=== PATIENT | male | born 1945 | race Caucasian/White ===

== ENCOUNTER 2016-06-30 02:25 | Inpatient (IN) ==
[2016-06-30] MEDS ORDERED: Ipratropium/Albuterol Neb 3 ML IH ONE (02:37)
[2016-06-30 02:55] LABS: Basophils # 0.1 K/mcL (0.0-0.2); Basophils % 0.9 %; Eosinophils # 0.2 K/mcL (0.0-0.6); Eosinophils % 2.2 %; Hematocrit 48.9 % (37.5-50.1); Hemoglobin 14.7 g/dL (12.9-16.9); Immature Granulocytes % 0.6 % (0-4); Lymphocytes # 0.4 K/mcL (0.6-4.6); Lymphocytes % 5.3 %; Mean Corpuscular HGB Conc 30.1 g/dL (31.6-35.5); Mean Corpuscular Hemoglobin 30.8 pg (28.0-33.3); Mean Corpuscular Volume 102.3 fL (83.0-100.0); Mean Platelet Volume 10.2 fL (9.4-12.4); Monocytes # 0.5 K/mcL (0.0-1.3); Monocytes % 6.2 %; Neutrophils # 6.9 K/mcL (1.6-8.9); Platelet Count 187 K/mcL (140-400); Red Blood Count 4.78 M/mcL (4.19-5.50); Red Cell Distribution Width 12.8 % (11.5-14.5); Segmented Neutrophils % 84.8 %
[2016-06-30 03:00] LABS: ABG HCO3 46.3 mEQ/L (21-27); ABG Oxygen Saturation 85 % (95-98); ABG PH 7.24 pH Units (7.32-7.45); ABG PO2 58 mmHg (85-104); ABG TCO2 49.6 mEq/L (20-26)
[2016-06-30 03:01] LABS: Blood Gas FiO2 32 %
[2016-06-30 03:03] LABS: ABG PCO2 108 mmHg (35-45)
--- NOTE | 2016-06-30 03:06 | Emergency Department Note ---
Disposition Clinical Impression: Hypercapnia Altered mental status Qualifiers: Altered mental status type: disorientation Qualified Code(s): R41.0 - Disorientation, unspecified Disposition: Admitted As Inpatient Condition: Good Time of Disposition: 05:39 General Adult HPI - General Chief complaint: ED Shortness of Breath/Dyspnea Stated complaint: NGOC Time Seen by Provider: 06/30/16 02:37 Source: patient, family, EMS Limitations: altered mental status Nursing Notes Reviewed: Yes Vital Signs Reviewed: Yes - History of Present Illness HPI Narrative: 2 day history of altered mental status. Patient brought in by EMS. Caregiver at bedside reporting he does have a history of hypercapnia. They state that he generally wears 2 L of oxygen when he is sleeping on his BiPAP. He was seen approximately week ago and cardiac kidney stones or possibly bladder stones. Caregiver is unaware. Pain Scale: 0 - Related Data Home Medications Medication Instructions Recorded Confirmed Albuterol Sulfate [Albuterol 2 puff IH Q4HR PRN 01/04/15 06/30/16 Inhaler] Aspirin Enteric Coated [Aspirin EC] 81 mg PO QAM 01/04/15 06/30/16 Atorvastatin [Lipitor] 40 mg PO HS 01/04/15 06/30/16 Loratadine [Claritin] 10 mg PO QAM 01/04/15 06/30/16 Multivitamin [Multi-Day Vitamins] 1 tab PO QAM 01/04/15 06/30/16 Om3-Dha/Epa/D3/Lutein/Zeazanth 1 cap PO BID 01/04/15 06/30/16 [Eye [place] Advantage Softgel] Omeprazole [PriLOSEC] 20 mg PO QAM 01/04/15 06/30/16 Tiotropium [Spiriva] 2 puff IH DAILY 01/04/15 06/30/16 Topiramate [Topamax] 100 mg PO BID 01/04/15 06/30/16 Acetaminophen [Tylenol] 650 mg PO Q6HR PRN 06/21/15 06/30/16 Carvedilol [Coreg] 3.125 - 6.25 mg PO BID 08/12/15 06/30/16 Clopidogrel [Plavix] 75 mg PO QAM 08/12/15 06/30/16 Isosorbide MONOnitrate (24 HR) 30 mg PO QAM 08/12/15 06/30/16 [Imdur] Ropinirole [Requip] 0.25 mg PO HS 08/12/15 06/30/16 Dimethyl Fumarate [Tecfidera] 240 mg PO BID 09/30/15 06/30/16 Lactobacillus [Culturelle] 1 each PO DAILY 09/30/15 06/30/16 Salsalate [Disalcid] 750 mg PO TID PRN 09/30/15 06/30/16 Tamsulosin [Flomax] 0.4 mg PO DAILY 09/30/15 06/30/16 Albuterol Neb [Proventil Neb] 2.5 mg IH Q4HR PRN 01/02/16 06/30/16 Budesonide/Formoterol 160/4.5 2 puff IH BIDR 01/02/16 06/30/16 [Symbicort 160/4.5] Capsaicin [Arthritis Pain Relief] 1 appl TP TID PRN 01/02/16 06/30/16 Docusate [Colace] 100 mg PO BID 01/02/16 06/30/16 Gabapentin [Neurontin] 300 mg PO TID 01/02/16 06/30/16 Guaifenesin [Tab Tussin] 400 mg PO TID PRN 01/02/16 06/30/16 Lactose-Reduced Food [Ensure Plus] 1 bottle PO TID 01/02/16 06/30/16 Levothyroxine [Synthroid] 50 mcg PO QAM 01/02/16 06/30/16 Nitroglycerin [Nitrostat] 0.4 mg SL AD PRN 01/02/16 06/30/16 Acetaminophen w/Cod 300-30 mg 1 tab PO Q6HR PRN 06/30/16 06/30/16 [Tylenol w/Codeine #3] Lisinopril 2.5 mg PO AD PRN 06/30/16 06/30/16 Previous Rx's Medication Instructions Recorded Ondansetron ODT [Zofran ODT] 4 mg SL Q6HR PRN #12 tab.rapdis 06/22/16 Allergies Allergy/AdvReac Type Severity Reaction Status Date / Time Aluminum Allergy Hives Verified 01/01/16 16:35 moxifloxacin Allergy Swelling Verified 01/01/16 16:35 of Lip/Tongue/Throat Nickel Allergy Rash Verified 01/01/16 16:35 [place] And Derivatives AdvReac See Verified 01/01/16 16:35 Comments magnesium AdvReac See Verified 01/01/16 16:35 Comments metal Allergy Rash Uncoded 01/04/15 09:53 Limitations: ROS unobtainable due to patients medical condition Past Medical History - Past Medical History Medical history: Reports: arthritis, CHF, COPD, coronary artery disease, GERD, hyperlipidemia, hypertension, myocardial infarction, thyroid disease, syncope, other Surgical history: Reports: appendectomy, pacemaker/AICD, other ([facility]. He had stents placed in June per patient. ) Psychiatric history: Reports: no psych history - Social History Smoking Status: Current every day smoker Smokeless Tobacco Status: No Alcohol use: Reports: none Drug use: Reports: none Physical Exam - General Limitations: altered mental status General appearance: alert - Head Head exam: atraumatic, normocephalic, normal inspection - Eye Eye exam: Present: normal appearance, PERRL, EOMI. Absent: scleral icterus, conjunctival injection - ENT ENT exam: normal exam, normal oropharynx, mucous membranes moist - Neck Neck exam: Present: normal inspection, full ROM, trachea midline - Chest Chest inspection: Present: normal inspection, symmetric chest wall rise. Absent : tenderness - Respiratory Respiratory exam: Present: respiratory distress (Patient paradoxically breathing ), wheezes - Cardiovascular Cardiovascular exam: Present: normal rhythm, tachycardia, normal heart sounds - Abdominal Exam Abdominal exam: Present: soft, Non-Tender, normal bowel sounds. Absent: tenderness, distention, guarding, rebound, rigidity, organomegaly - Extremities Exam Extremities exam: Present: normal inspection, full ROM, normal capillary refill. Absent: tenderness, pedal edema, joint swelling - Neurological Exam Neurological exam: Present: alert, other (Confused.). Absent: oriented X3 - Psychiatric Psychiatric exam: Present: normal affect, normal mood - Skin Skin exam: Present: warm, dry, intact, normal color. Absent: rash, cyanosis Course Course Narrative: Male patient brought in by EMS. Caregiver at bedside advising that he has been confused for the past 2 days. He does have a history of hypercapnic issues. He advises that the patient wears 2 L of oxygen at home and a BiPAP whenever he is asleep. He states he has been compliant with his regimen. The patient is very confused. He is unaware of where he is what month it is or what year it is. He is alert to voice. Lung sounds are wheezing throughout. He is paradoxically breathing and in the 92% range on 2 L. Will give patient a breathing treatment and get an ABG. Will also get basic labs. And a chest x- ray. I anticipate admission for this patient. - Reevaluation(s) Reevaluation #1: Patient CO2 is 108. We will place patient on BiPAP. We will admit patient Time: 03:17 Reevaluation #2: Patient CO2 did not decrease and a significant fashion. We will intubate patient. He was intubated with a 7.5 ET tube secured at the hip at 24 cm. Intubation was successful on one attempt. He was left on BiPAP and induced. There were no complications noted. Time: 05:37 Vital Signs Temperature 97.7 F 06/30/16 02:28 Pulse Rate 108 06/30/16 02:28 Respiratory Rate 20 06/30/16 02:28 Blood Pressure 165/92 06/30/16 02:28 O2 Sat by Pulse Oximetry 90 L 06/30/16 02:28 Temperature 98.0 F 06/30/16 20:00 Pulse Rate 72 06/30/16 23:00 Respiratory Rate 22 06/30/16 23:00 Blood Pressure 132/70 06/30/16 23:00 O2 Sat by Pulse Oximetry 97 06/30/16 23:00 Oxygen Delivery Oxygen Delivery Ventilator Procedures - Intubation Time out performed: Yes sedative: Etomidate Mg Given: 21 paralytic: Rocuronium Mg Given: 42 Laryngoscope: Lopez ET Tube Size: 7.5 ET Tube Uncuffed: No Tube Secured Depth (cm): 24 Tube Secured Location: lips Tube Placement Confirmation: visualized tube passing through cords, equal breath sounds bilaterally, no breath sounds over epigastrium, confirmation by capnometry Patient Tolerated Procedure: well Intubation Complications: none Medical Decision Making - Medical Records Medical records reviewed: Yes I reviewed the patient's medical records. - Lab Data Lab results reviewed: Yes I reviewed the patient's lab results. Result diagrams: 06/30/16 02:49 06/30/16 02:49 Lab Results 06/30/16 06/30/16 06/30/16 Range/Units 02:39 02:49 02:49 WBC 8.2 (4.3-11.1) K/mcL RBC 4.78 (4.19-5.50) M/mcL Hgb 14.7 (12.9-16.9) g/dL Hct 48.9 (37.5-50.1) % MCV 102.3 H (83.0-100.0) fL MCH 30.8 (28.0-33.3) pg MCHC 30.1 L (31.6-35.5) g/dL RDW 12.8 (11.5-14.5) % Plt Count 187 (140-400) K/mcL MPV 10.2 (9.4-12.4) fL Immature Gran % 0.6 (0-4) % Seg Neutrophils % 84.8 % Lymphocytes % 5.3 % Monocytes % 6.2 % Eosinophils % 2.2 % Basophils % 0.9 % Neutrophils # 6.9 (1.6-8.9) K/mcL Lymphocytes # 0.4 L (0.6-4.6) K/mcL Monocytes # 0.5 (0.0-1.3) K/mcL Eosinophils # 0.2 (0.0-0.6) K/mcL Basophils # 0.1 (0.0-0.2) K/mcL ABG pH (7.32-7.45) pH Units ABG pCO2 (35-45) mmHg ABG pO2 (85-104) mmHg ABG HCO3 (21-27) mEQ/L ABG Total CO2 (20-26) mEq/L ABG O2 Saturation (95-98) % ABG Base Excess (-2.0 to 3.0) mEq/L Blood Gas Modality Inspired O2 % Sodium 141 (136-145) mEq/L Potassium 4.7 H (3.5-4.5) mEq/L Chloride 99 (98-109) mEq/L Carbon Dioxide 36 H (19-29) mEq/L BUN 23 (8-26) mg/dL Creatinine 1.01 (0.72-1.25) mg/dL Est GFR ( Amer) > 60 (> 60) Est GFR (Non-Af Amer) > 60 (> 60) BUN/Creatinine Ratio 23 (6-26) Glucose 161 H (70-99) mg/dL POC Glucose 134 H (58-89) Calculated Osmolality 299 (280-300) Lactic Acid (0.5-2.2) mmol/L Calcium 9.8 (8.6-10.8) mg/dL Troponin I (0-0.03) ng/mL 06/30/16 06/30/16 06/30/16 Range/Units 02:49 02:49 02:50 WBC (4.3-11.1) K/mcL RBC (4.19-5.50) M/mcL Hgb (12.9-16.9) g/dL Hct (37.5-50.1) % MCV (83.0-100.0) fL MCH (28.0-33.3) pg MCHC (31.6-35.5) g/dL RDW (11.5-14.5) % Plt Count (140-400) K/mcL MPV (9.4-12.4) fL Immature Gran % (0-4) % Seg Neutrophils % % Lymphocytes % % Monocytes % % Eosinophils % % Basophils % % Neutrophils # (1.6-8.9) K/mcL Lymphocytes # (0.6-4.6) K/mcL Monocytes # (0.0-1.3) K/mcL Eosinophils # (0.0-0.6) K/mcL Basophils # (0.0-0.2) K/mcL ABG pH 7.24 L (7.32-7.45) pH Units ABG pCO2 108 H* (35-45) mmHg ABG pO2 58 L (85-104) mmHg ABG HCO3 46.3 H (21-27) mEQ/L ABG Total CO2 49.6 H (20-26) mEq/L ABG O2 Saturation 85 L (95-98) % ABG Base Excess 13.0 H (-2.0 to 3.0) mEq/L Blood Gas Modality [place] Inspired O2 32 % Sodium (136-145) mEq/L Potassium (3.5-4.5) mEq/L Chloride (98-109) mEq/L Carbon Dioxide (19-29) mEq/L BUN (8-26) mg/dL Creatinine (0.72-1.25) mg/dL Est GFR ( Amer) (> 60) Est GFR (Non-Af Amer) (> 60) BUN/Creatinine Ratio (6-26) Glucose (70-99) mg/dL POC Glucose (58-89) Calculated Osmolality (280-300) Lactic Acid 0.5 (0.5-2.2) mmol/L Calcium (8.6-10.8) mg/dL Troponin I 0.01 (0-0.03) ng/mL 06/30/16 Range/Units 04:50 WBC (4.3-11.1) K/mcL RBC (4.19-5.50) M/mcL Hgb (12.9-16.9) g/dL Hct (37.5-50.1) % MCV (83.0-100.0) fL MCH (28.0-33.3) pg MCHC (31.6-35.5) g/dL RDW (11.5-14.5) % Plt Count (140-400) K/mcL MPV (9.4-12.4) fL Immature Gran % (0-4) % Seg Neutrophils % % Lymphocytes % % Monocytes % % Eosinophils % % Basophils % % Neutrophils # (1.6-8.9) K/mcL Lymphocytes # (0.6-4.6) K/mcL Monocytes # (0.0-1.3) K/mcL Eosinophils # (0.0-0.6) K/mcL Basophils # (0.0-0.2) K/mcL ABG pH 7.24 L (7.32-7.45) pH Units ABG pCO2 106 H* (35-45) mmHg ABG pO2 100 (85-104) mmHg ABG HCO3 45.4 H (21-27) mEQ/L ABG Total CO2 48.7 H (20-26) mEq/L ABG O2 Saturation 97 (95-98) % ABG Base Excess 12.6 H (-2.0 to 3.0) mEq/L Blood Gas Modality BIPAP Inspired O2 40 % Sodium (136-145) mEq/L Potassium (3.5-4.5) mEq/L Chloride (98-109) mEq/L Carbon Dioxide (19-29) mEq/L BUN (8-26) mg/dL Creatinine (0.72-1.25) mg/dL Est GFR ( Amer) (> 60) Est GFR (Non-Af Amer) (> 60) BUN/Creatinine Ratio (6-26) Glucose (70-99) mg/dL POC Glucose (58-89) Calculated Osmolality (280-300) Lactic Acid (0.5-2.2) mmol/L Calcium (8.6-10.8) mg/dL Troponin I (0-0.03) ng/mL - Radiology Data Chest X-Ray 06/30/16 02:37 IMPRESSION: Stable appearance of the chest with no acute abnormality. D/ / Refugio Hernandez MD / Refugio Hernandez MD Interpreting Provider: Refugio Hernandez MD - EKG Data EKG #1 EKG attestation: Yes I reviewed and interpreted this EKG. EKG results narrative: Ventricularly paced rhythm at a rate of 109. DC interval is 187. QRS duration is 167. QT is 361. QTC is 425. Is no change in the EKG and the previous dated 01/01/2016. Attestation Statement - Attestation Attestation: I examined this patient and my medical decision-making was reviewed with the INTERNAL COMMUNICATIONS WRITER/PA/Advanced Practice Nurse/Resident Physician. I agree with the documented findings, disposition and treatment plan as described except to the extent set forth below. Patient emergency department with altered mental status. Family states that he is confused. States he did however graduating normally is very sharp in conversation. Does not even know a day of the week it is. History of respiratory failure with hypercapnia. On exam he is awake alert in no distress. He has decreased air exchange with end expiratory wheezing. Plan. ABG shows a CO2 over 100. He started on BiPAP. X-ray clear. Patient will be admitted after repeat ABG. Patient fell hypercapnia on repeat EEG. Intubated. Verbal consent from caregiver present with patient. We will admit to ICU. 35 minutes of critical care exclusive of separately billable procedures
[2016-06-30 03:10] LABS: BUN/Creatinine Ratio 23 (6-26); Blood Urea Nitrogen 23 mg/dL (8-26); Calcium 9.8 mg/dL (8.6-10.8); Carbon Dioxide 36 mEq/L (19-29); Chloride 99 mEq/L (98-109); Glucose 161 mg/dL (70-99); Osmolality,Calculated 299 (280-300); Potassium 4.7 mEq/L (3.5-4.5); Sodium 141 mEq/L (136-145); eGFR For African Americans > 60 (> 60); eGFR For Non-African Americans > 60 (> 60)
[2016-06-30 05:05] LABS: ABG Base Excess 12.6 mEq/L (-2.0 to 3.0); ABG HCO3 45.4 mEQ/L (21-27); ABG Oxygen Saturation 97 % (95-98); ABG PH 7.24 pH Units (7.32-7.45); ABG PO2 100 mmHg (85-104); ABG TCO2 48.7 mEq/L (20-26)
[2016-06-30 05:06] LABS: Blood Gas FiO2 40 %
[2016-06-30 05:09] LABS: ABG PCO2 106 mmHg (35-45)
[2016-06-30] MEDS ORDERED: Propofol 500 MG/50 ML INFUS..BTL ONE (05:15)
[2016-06-30] MEDS ORDERED: *HR* Rocuronium Bromide 50 MG/5 ML VIAL IVP ONE (05:16)
[2016-06-30] MEDS ORDERED: *HR* Etomidate 20 MG/10 ML AMPUL IVP ONE (05:17)
[2016-06-30] MEDS ORDERED: Naloxone 0.4 MG/ML INJ IVP PRN ×2 (06:02→16:42)
[2016-06-30] MEDS ORDERED: Lacri-Lube 3.5 GM TUBE BOTH EYES PRN (06:25)
--- NOTE | 2016-06-30 06:25 | Internal Med History&Physical ---
Date of Encounter: 06/30/16 Time of Encounter: 06:25 Assessment and Plan (1) Acute and chronic respiratory failure Current visit: Yes Status: Acute Possibly secondary to acute exacerbation of COPD. Pt was on BiPAP at home. He has significant CO2 retention. Failed a trial of BiPAP in the ER and hence intubated. Pulmonary / critical care consult for further management. Qualifiers: Respiratory failure complication: hypoxia and hypercapnia Qualified Code(s) : J96.21 - Acute and chronic respiratory failure with hypoxia; J96.22 - Acute and chronic respiratory failure with hypercapnia (2) Respiratory acidosis Current visit: Yes Status: Acute Secondary to CO2 retention. Pt failed BiPAP therapy - now intubated and on mechanical vent. Monitor ABGs (3) COPD exacerbation Current visit: Yes Status: Acute Will treat with bronchodilators and solumedrol. Pulmonary consult (4) CAD (coronary artery disease) Current visit: Yes Status: Chronic Continue home medications Qualifiers: Coronary Disease-Associated Artery/Lesion type: [place] artery [place] vs. transplanted heart: [place] heart Associated angina: without angina Qualified Code(s): I25.10 - Atherosclerotic heart disease of [place] coronary artery without angina pectoris (5) Hypothyroidism Current visit: Yes Status: Chronic continue synthroid. Check TSH Qualifiers: Hypothyroidism type: unspecified Qualified Code(s): E03.9 - Hypothyroidism , unspecified (6) CO2 narcosis Current visit: Yes Status: Acute Failed BiPAP therapy - intubated (7) DVT prophylaxis Current visit: Yes Status: Acute Heparin Internal Medicine - H&P: HPI Chief complaint: Confusion Admitted From: Emergency Dept Plans for Post Hospital Care: Home History of present illness: Mr. Grayson is a 71 year old male With Past medical history significant for CHF , COPD, Chronic respiratory failure on home oxygen and home BiPAP, coronary artery disease, GERD, hyperlipidemia, hypertension, myocardial infarction, hypothyroidism, s/p pacemaker/AICD. For the last 2 days apparently has been confused and more sleepy which has gotten worse tonight. Confusion was worse and he was noted to be hypoxic on the pulse oximetry, when he was off BiPAP. His son was concerned about CO2 retention and brought him to the emergency department. He was hypercapnic with PCO2 of 108 (his baseline is apparently at about 70) and pH of 7.24. He had a trail for BiPAP, with minimal improvmentin pCO2. Hence he was intubated and started on mechanical ventilation. He is admitted to ICU for further management. Patient is intubated and sedated and is not able to give any clinical details. Details obtained by speaking to the pts son and ER providers. Critical care time spent in a organizing care is about 40 minutes. Past Med Surg Social Fam HX - Past Medical History Medical history: arthritis, CHF, COPD, coronary artery disease, GERD, hyperlipidemia, hypertension, myocardial infarction, thyroid disease, syncope, other Psychiatric history: no psych history - Past Surgical History Surgical History: appendectomy, pacemaker/AICD, other ([facility]. He had stents placed in June per patient. ) - Social History Smoking Status: Current every day smoker Smokeless Tobacco Status: No Alcohol use: none Drug use: none - Family History Mother Adopted: No Family Member Ethnicity: Non- Living Status: Hx Family Cancer: Yes (uncertain) Father Adopted: No Family Member Ethnicity: Non- Living Status: Hx Family Cardiac Disorders: Yes Hx Family Respiratory Disorders: Yes Hx Family Cancer: Yes (colon) Hx Family GI Disorders: No Hx Family Endocrine Disorder: Yes (diabetic type 2) Hx Family Neuromuscular Disorders: No Hx Family Neurologic Disorders: No Hx Family HEENT Disorders: No Hx Family Autoimmune Disorders: No Internal Medicine - H&P: Meds Albuterol Sulfate [Albuterol Inhaler] 2 puff IH Q4HR PRN 01/04/15 [History] Aspirin Enteric Coated [Aspirin EC] 81 mg PO QAM 01/04/15 [History] Atorvastatin [Lipitor] 40 mg PO HS 01/04/15 [History] Loratadine [Claritin] 10 mg PO QAM 01/04/15 [History] Multivitamin [Multi-Day Vitamins] 1 tab PO QAM 01/04/15 [History] Om3-Dha/Epa/D3/Lutein/Zeazanth [Eye [place] Advantage Softgel] 1 cap PO BID [History] Omeprazole [PriLOSEC] 20 mg PO QAM 01/04/15 [History] Tiotropium [Spiriva] 2 puff IH DAILY 01/04/15 [History] Topiramate [Topamax] 100 mg PO BID 01/04/15 [History] Acetaminophen [Tylenol] 650 mg PO Q6HR PRN 06/21/15 [History] Carvedilol [Coreg] 3.125 - 6.25 mg PO BID 08/12/15 [History] Clopidogrel [Plavix] 75 mg PO QAM 08/12/15 [History] Isosorbide MONOnitrate (24 HR) [Imdur] 30 mg PO QAM 08/12/15 [History] Ropinirole [Requip] 0.25 mg PO HS 08/12/15 [History] Dimethyl Fumarate [Tecfidera] 240 mg PO BID 09/30/15 [History] Lactobacillus [Culturelle] 1 each PO DAILY 09/30/15 [History] Salsalate [Disalcid] 750 mg PO TID PRN 09/30/15 [History] Tamsulosin [Flomax] 0.4 mg PO DAILY 09/30/15 [History] Albuterol Neb [Proventil Neb] 2.5 mg IH Q4HR PRN 01/02/16 [History] Budesonide/Formoterol 160/4.5 [Symbicort 160/4.5] 2 puff IH BIDR 01/02/16 [ History] Capsaicin [Arthritis Pain Relief] 1 appl TP TID PRN 01/02/16 [History] Docusate [Colace] 100 mg PO BID 01/02/16 [History] Gabapentin [Neurontin] 300 mg PO TID 01/02/16 [History] Guaifenesin [Tab Tussin] 400 mg PO TID PRN 01/02/16 [History] Lactose-Reduced Food [Ensure Plus] 1 bottle PO TID 01/02/16 [History] Levothyroxine [Synthroid] 50 mcg PO QAM 01/02/16 [History] Nitroglycerin [Nitrostat] 0.4 mg SL AD PRN 01/02/16 [History] Ondansetron ODT [Zofran ODT] 4 mg SL Q6HR PRN #12 tab.rapdis 06/22/16 [Rx] Acetaminophen w/Cod 300-30 mg [Tylenol w/Codeine #3] 1 tab PO Q6HR PRN 06/30/16 [History] Lisinopril 2.5 mg PO AD PRN 06/30/16 [History] Allergies Aluminum Allergy (Verified 01/01/16 16:35) Hives moxifloxacin Allergy (Verified 01/01/16 16:35) Swelling of Lip/Tongue/Throat Nickel Allergy (Verified 01/01/16 16:35) Rash [place] And Derivatives Adverse Reaction (Verified 01/01/16 16:35) See Comments MOUTH SORES magnesium Adverse Reaction (Verified 01/01/16 16:35) See Comments BURNING WITH URINATION metal Allergy (Uncoded 01/04/15 09:53) Rash ROS unobtainable: due to endotracheal tube - Constitutional Vitals: Temp Pulse Resp BP Pulse Ox 97.7 F 81 16 98/67 99 06/30/16 02:28 06/30/16 05:56 06/30/16 05:56 06/30/16 05:56 06/30/16 05:56 Exam: General: Patient is sedated and intubated. HEENT: Patient is sedated and intubated. Endotracheal tube in place. No conjunctival palor or scleral icterus Neck: No obvious neck swellings Lungs: Bilateral wheeze present. Transmitted sounds present Cardiac: Regular rate and rhythm. No significant murmurs Abdomen: Soft. Bowel sounds present Neurological: Patient is sedated and intubated. Not able to follow commands Psych: Patient is sedated and intubated Extremities: no significant leg edema Skin: No generalized rash Internal Med - H&P Results - Labs CBC & Chem 7: 06/30/16 02:49 06/30/16 02:49 - EKG Data -: EKG Interpreted by Myself EKG shows normal: sinus rhythm - Impressions ITS Impressions Chest X-Ray 06/30/16 02:37 IMPRESSION: Stable appearance of the chest with no acute abnormality. D/ / Refugio Hernandez MD / Refugio Hernandez MD Interpreting Provider: Refugio Hernandez MD Chest X-Ray 06/30/16 05:33 IMPRESSION: Appropriate positioning of endotracheal tube. No other significant findings in the chest. D/ / Refugio Hernandez MD / Refugio Hernandez MD Interpreting Provider: Refugio Hernandez MD
[2016-06-30] MEDS ORDERED: Pantoprazole 40 MG VIAL IVPB SCH (06:30)
[2016-06-30 06:51] LABS: Bilirubin,Urine Negative (Negative); Blood,Urine Large (Negative); Clarity,Urine Clear (Clear); Color,Urine Yellow (Yellow); Glucose,Urine (UA) Normal (Normal); Ketones,Urine Negative (Negative); Leukocyte Esterase,Urine Negative (Negative); Nitrite,Urine Negative (Negative); PH,Urine 6.5 pH Units (5.0-8.0); Protein,Urine 30 mg/dL (Neg-Trace); Specific Gravity,Urine 1.019 (1.010-1.025); Urobilinogen,Urine Normal (Normal)
[2016-06-30 06:53] LABS: Bacteria,Urine None Seen per hpf (None-Few); Hyaline Casts,Urine None Seen per lpf (None-Few); RBC,Urine TNTC per hpf (0-3); Squamous Epithelial Cell,Urine Moderate per lpf (None-Few); WBC,Urine 0-3 per hpf (0-3)
--- NOTE | 2016-06-30 06:59 | Pulmonology Consult Note ---
<Juaquin Álvarez W - Last Filed: 06/30/16 10:58> Medications and Allergies Albuterol Sulfate [Albuterol Inhaler] 2 puff IH Q4HR PRN 01/04/15 [History] Aspirin Enteric Coated [Aspirin EC] 81 mg PO QAM 01/04/15 [History] Atorvastatin [Lipitor] 40 mg PO HS 01/04/15 [History] Loratadine [Claritin] 10 mg PO QAM 01/04/15 [History] Multivitamin [Multi-Day Vitamins] 1 tab PO QAM 01/04/15 [History] Om3-Dha/Epa/D3/Lutein/Zeazanth [Eye [place] Advantage Softgel] 1 cap PO BID [History] Omeprazole [PriLOSEC] 20 mg PO QAM 01/04/15 [History] Tiotropium [Spiriva] 2 puff IH DAILY 01/04/15 [History] Topiramate [Topamax] 100 mg PO BID 01/04/15 [History] Acetaminophen [Tylenol] 650 mg PO Q6HR PRN 06/21/15 [History] Carvedilol [Coreg] 3.125 mg PO BID 08/12/15 [History] Clopidogrel [Plavix] 75 mg PO QAM 08/12/15 [History] Isosorbide MONOnitrate (24 HR) [Imdur] 15 mg PO QAM 08/12/15 [History] Ropinirole [Requip] 0.25 mg PO HS 08/12/15 [History] Dimethyl Fumarate [Tecfidera] 240 mg PO BID 09/30/15 [History] Lactobacillus [Culturelle] 1 each PO DAILY 09/30/15 [History] Salsalate [Disalcid] 750 mg PO TID PRN 09/30/15 [History] Tamsulosin [Flomax] 0.4 mg PO DAILY 09/30/15 [History] Albuterol Neb [Proventil Neb] 2.5 mg IH Q4HR PRN 01/02/16 [History] Budesonide/Formoterol 160/4.5 [Symbicort 160/4.5] 2 puff IH BIDR 01/02/16 [ History] Capsaicin [Arthritis Pain Relief] 1 appl TP TID PRN 01/02/16 [History] Docusate [Colace] 100 mg PO BID 01/02/16 [History] Gabapentin [Neurontin] 300 mg PO TID 01/02/16 [History] Guaifenesin [Tab Tussin] 400 mg PO TID PRN 01/02/16 [History] Lactose-Reduced Food [Ensure Plus] 1 bottle PO TID 01/02/16 [History] Levothyroxine [Synthroid] 50 mcg PO QAM 01/02/16 [History] Nitroglycerin [Nitrostat] 0.4 mg SL AD PRN 01/02/16 [History] Sennosides/Docusate Sodium [Senna Plus] 2 each PO BID PRN 01/02/16 [History] Acetaminophen w/Cod 300-30 mg [Tylenol w/Codeine #3] 1 each PO Q6HR PRN #15 tablet 06/22/16 [Rx] Ondansetron ODT [Zofran ODT] 4 mg SL Q6HR PRN #12 tab.rapdis 06/22/16 [Rx] Peg 3350/Na Sulf,Bicarb,Cl/KCl [Golytely Solution] 4,000 ml PO ONCE PRN #1 soln.recon 06/22/16 [Rx] Allergies Aluminum Allergy (Verified 01/01/16 16:35) Hives moxifloxacin Allergy (Verified 01/01/16 16:35) Swelling of Lip/Tongue/Throat Nickel Allergy (Verified 01/01/16 16:35) Rash [place] And Derivatives Adverse Reaction (Verified 01/01/16 16:35) See Comments MOUTH SORES magnesium Adverse Reaction (Verified 01/01/16 16:35) See Comments BURNING WITH URINATION metal Allergy (Uncoded 01/04/15 09:53) Rash All Systems: A 10-system review of systems was performed and is negative for pertinent findings except as documented above in the HPI. Physical Examination Vital Signs: Vital Signs, Last 4 Hours Temp Pulse Resp BP Pulse Ox 06/30/16 10:25 22 96 06/30/16 10:00 98 24 137/69 96 06/30/16 09:00 90 16 96/68 96 06/30/16 08:00 96.8 F L 85 16 121/80 100 Ventilator Settings Ventilator Settings: Ventilator Settings, Last 8 Hours Ventilator Mode A/C Ventilator Mode A/C Ventilator Tidal Volume 550 Setting Ventilator Tidal Volume 550 Setting Ventilator Respiratory Rate 16 Setting Ventilator Respiratory Rate 16 Setting Actual Respiratory Rate 16 Actual Respiratory Rate 16 Positive End Expiratory 5 Pressure Positive End Expiratory 5 Pressure Peak Inspiratory Airway 46 Pressure Results - Laboratory Findings CBC and BMP: 06/30/16 02:49 06/30/16 02:49 ABG ABG pH 7.24 pH Units (7.32-7.45) L 06/30/16 04:50 ABG pCO2 106 mmHg (35-45) H* 06/30/16 04:50 ABG pO2 100 mmHg (85-104) 06/30/16 04:50 ABG O2 Saturation 97 % (95-98) 06/30/16 04:50 Abnormal lab findings: Abnormal lab results MCV 102.3 fL (83.0-100.0) H 06/30/16 02:49 MCHC 30.1 g/dL (31.6-35.5) L 06/30/16 02:49 Lymphocytes # 0.4 K/mcL (0.6-4.6) L 06/30/16 02:49 ABG pH 7.24 pH Units (7.32-7.45) L 06/30/16 04:50 ABG pCO2 106 mmHg (35-45) H* 06/30/16 04:50 ABG HCO3 45.4 mEQ/L (21-27) H 06/30/16 04:50 ABG Total CO2 48.7 mEq/L (20-26) H 06/30/16 04:50 ABG Base Excess 12.6 mEq/L (-2.0 to 3.0) H 06/30/16 04:50 Potassium 4.7 mEq/L (3.5-4.5) H 06/30/16 02:49 Carbon Dioxide 36 mEq/L (19-29) H 06/30/16 02:49 Glucose 161 mg/dL (70-99) H 06/30/16 02:49 POC Glucose 172 (58-89) H 06/30/16 07:06 Urine Protein 30 mg/dL (Neg-Trace) H 06/30/16 06:44 Urine Blood Large (Negative) H 06/30/16 06:44 Urine Microscopic RBC TNTC per hpf (0-3) H 06/30/16 06:44 Ur Squamous Epith Cells Moderate per lpf (None-Few) H 06/30/16 06:44 - Clinical Findings Intake & Output: Intake & Output 06/29/16 06/30/16 06/30/16 23:59 07:59 15:59 Weight 72 kg Consult Discharge Plan - Plan Referrals: [facility],PC[facility] [Primary Care Provider] - - Attending Attestation I examined this patient and my medical decision-making was reviewed with the LEADERSHIP DEVELOPMENT CONSULTANT/PA/Advanced Practice Nurse/Resident Physician. I agree with the documented findings, disposition and treatment plan as described except to the extent set forth below. This is a 71-year-old gentleman who presented presented to the ED from home for work worsening altered mental status and to have acute on chronic hypoxic hypercapnic respiratory failure secondary to likely COPD exacerbation complicated by heart disease and multiple sclerosis. Failed noninvasive ventilation in the ED and subsequently intubated His advanced directive patient was unfortunately DNA/DNI this was not fully elucidated by next of kin (secondary health care POA son-DIANA) who was in the ED at the time Discussed with primary legal healthcare power of attorner the patient's nephew Taj who reiterated patient's wishes was not to be intubated and discussion with Taj son and rest of family along with palliative care team and per patient's advanced directives he was extubated Currently patient is awake following commands was placed on bilevel positive airway pressure support Will treat for COPD exacerbation with IV steroids and azithromycin bronchodilators and bilevel positive airway pressure support as needed Patient's CODE STATUS is [id number] and this was updated in the computer Patient can be transferred to stepdown unit later in the day for ongoing care and may need hospice consultation <Keyshawn Syed - Last Filed: 06/30/16 12:01> Date of Encounter: 06/30/16 Time of Encounter: 06:59 Assessment and Plan (1) Acute and chronic respiratory failure Current Visit: Yes Status: Acute Patient has underlying end-stage COPD as a following a palliative care. Admitted with worsening altered mental status and hypercapnia. Admitting PCO2 was 108. Patient failed trial of BiPAP and was intubated. Per patient's wishes with consultation of patient's family patient was extubated and is currently on 4 L nasal cannula. Plan: - Continue nasal cannula oxygen - Antibiotic coverage azithromycin 500 mg every 24 hours - Solu-Medrol 40 mg IV every 8 hours - Dual nebs and albuterol sulfate nebulizer. Qualifiers: Respiratory failure complication: hypoxia and hypercapnia Qualified Code(s) : J96.21 - Acute and chronic respiratory failure with hypoxia; J96.22 - Acute and chronic respiratory failure with hypercapnia (2) Altered mental status Current Visit: Yes Status: Acute Altered mental status secondary to hypercapnia, and mental status improved with temporary intubation baseline CO2 around 70. Qualifiers: Altered mental status type: disorientation Qualified Code(s): R41.0 - Disorientation, unspecified (3) Hypercapnia Current Visit: Yes Status: Acute Patient has end-stage COPD with a baseline CO2 of 70. CO2 upon admission was 108 secondary to COPD exacerbation with worsening CO2 retention. Plan: - Patient extubated per his wishes. - Continue nasal cannula oxygen (4) Acute relapsing multiple sclerosis Current Visit: No Status: Acute History of multiple sclerosis. Stable (5) DVT prophylaxis Current Visit: No Status: Acute Subcutaneous heparin every 8 hours. History of Present Illness Consult date: 06/30/16 Requesting physician: Korey Yung Reason for consult: COPD, hypoxemia Chief complaint: SOB History of present illness: Mr. Grayson 71-year-old male presents to the hospital with progressively worsening shortness of breath, he has a history of COPD, chronic respiratory failure requiring home oxygen home BiPAP, congestive heart failure, coronary artery disease, GERD, hyperlipidemia, hypertension, AL, hypothyroidism, AICD, history of MS. The patient is currently intubated but according to his son who lives with him he had progressively worsening shortness of breath over the past 2 days. He had been more confused and lethargic and was found to be hypoxic by pulse ox while on BiPAP. His son was concerned about his CO2 retention and brought him to the emergency department. His PCO2 is 108 with a baseline of 70. He was placed on BiPAP and his PCO2 had minimal improvement and was subsequently intubated with an endotracheal tube in place on mechanical ventilation. He was then transferred to the ICU for further care while on mechanical ventilation. Further review the patient's medical chart demonstrates that he did not want any invasive intervention including endotracheal intubation or significant interventions performed. His nephew, Taj Cole is primary medical POA ([phone]) His son Diana is secondary. A family meeting was held today and it was decided to extubate Mr. Grayson per his wishes. Past Med Surg Social Fam HX - Past Medical History Medical history: arthritis, CHF, COPD, coronary artery disease, GERD, hyperlipidemia, hypertension, myocardial infarction, thyroid disease, syncope, other Psychiatric history: no psych history - Past Surgical History Surgical History: appendectomy, pacemaker/AICD, other ([facility]. He had stents placed in June per patient. ) - Social History Smoking Status: Current every day smoker Smokeless Tobacco Status: No Alcohol use: none Drug use: none - Family History Mother Adopted: No Family Member Ethnicity: Non- Living Status: Hx Family Cancer: Yes (uncertain) Father Adopted: No Family Member Ethnicity: Non- Living Status: Hx Family Cardiac Disorders: Yes Hx Family Respiratory Disorders: Yes Hx Family Cancer: Yes (colon) Hx Family GI Disorders: No Hx Family Endocrine Disorder: Yes (diabetic type 2) Hx Family Neuromuscular Disorders: No Hx Family Neurologic Disorders: No Hx Family HEENT Disorders: No Hx Family Autoimmune Disorders: No ROS unobtainable: due to endotracheal tube All Systems: A 10-system review of systems was performed and is negative for pertinent findings except as documented above in the HPI. Physical Examination Vital Signs: Vital Signs, Last 4 Hours Resp BP 06/30/16 06:28 16 105/69 General appearance: no acute distress Eyes: nonicteric ENT: oropharynx moist Neck: supple, no JVD Effort: normal Auscultation: bilateral: diminished breath sounds, wheezes Cardiovascular: regular rate and rhythm Gastrointestinal: normoactive bowel sounds, soft, non-tender, non-distended Integumentary: normal Extremities: no cyanosis, no edema, no clubbing Musculoskeletal: no deformities normal mental status, non-focal exam Results - Laboratory Findings CBC and BMP: 06/30/16 02:49 06/30/16 02:49 ABG ABG pH 7.24 pH Units (7.32-7.45) L 06/30/16 04:50 ABG pCO2 106 mmHg (35-45) H* 06/30/16 04:50 ABG pO2 100 mmHg (85-104) 06/30/16 04:50 ABG O2 Saturation 97 % (95-98) 06/30/16 04:50 Abnormal lab findings: Abnormal lab results MCV 102.3 fL (83.0-100.0) H 06/30/16 02:49 MCHC 30.1 g/dL (31.6-35.5) L 06/30/16 02:49 Lymphocytes # 0.4 K/mcL (0.6-4.6) L 06/30/16 02:49 ABG pH 7.24 pH Units (7.32-7.45) L 06/30/16 04:50 ABG pCO2 106 mmHg (35-45) H* 06/30/16 04:50 ABG HCO3 45.4 mEQ/L (21-27) H 06/30/16 04:50 ABG Total CO2 48.7 mEq/L (20-26) H 06/30/16 04:50 ABG Base Excess 12.6 mEq/L (-2.0 to 3.0) H 06/30/16 04:50 Potassium 4.7 mEq/L (3.5-4.5) H 06/30/16 02:49 Carbon Dioxide 36 mEq/L (19-29) H 06/30/16 02:49 Glucose 161 mg/dL (70-99) H 06/30/16 02:49 Urine Protein 30 mg/dL (Neg-Trace) H 06/30/16 06:44 Urine Blood Large (Negative) H 06/30/16 06:44 Urine Microscopic RBC TNTC per hpf (0-3) H 06/30/16 06:44 Ur Squamous Epith Cells Moderate per lpf (None-Few) H 06/30/16 06:44
[2016-06-30] MEDS ORDERED: Lacri-Lube 3.5 GM TUBE BOTH EYES SCH (08:00)
[2016-06-30] MEDS ORDERED: *HR* Etomidate 40 MG/20 ML VIAL IVP ONE (08:32)
[2016-06-30] MEDS ORDERED: *HR* Rocuronium Bromide 50 MG/5 ML VIAL IVC ONE (08:32)
[2016-06-30] MEDS ORDERED: Chlorhexidine Rinse 15 ML MOUTHWASH MM SCH (09:00)
[2016-06-30] MEDS ORDERED: Albuterol 2.5 MG/3 ML NEBULIZER IH PRN ×2 (10:07→16:42)
[2016-06-30] MEDS: MethylPREDNISolone 40 MG/ML VIAL IVP SCH ×3 (10:12→16:02)
[2016-06-30] MEDS ORDERED: Ondansetron ODT 4 MG TAB.RAPDIS SL PRN ×2 (10:42→16:42)
[2016-06-30] MEDS ORDERED: Azithromycin 500 MG in D5% in Water 250 ML IVPB SCH (11:00)
[2016-06-30 11:41] LABS: ABG Base Excess 9.6 mEq/L (-2.0 to 3.0); ABG HCO3 40.4 mEQ/L (21-27); ABG Oxygen Saturation 98 % (95-98); ABG PH 7.26 pH Units (7.32-7.45); ABG PO2 127 mmHg (85-104); ABG TCO2 43.2 mEq/L (20-26)
[2016-06-30 11:43] LABS: ABG PCO2 90 mmHg (35-45)
[2016-06-30 11:44] LABS: Blood Gas FiO2 36 %
[2016-06-30] MEDS ORDERED: *HR* Heparin 5,000 UNIT/ML VIAL SQ SCH (14:00)
[2016-06-30] MEDS ORDERED: Ipratropium/Albuterol Neb 3 ML IH SCH (16:00)
[2016-06-30 17:10] LABS: ABG Base Excess 9.7 mEq/L (-2.0 to 3.0); ABG HCO3 39.3 mEQ/L (21-27); ABG Oxygen Saturation 99 % (95-98); ABG PH 7.31 pH Units (7.32-7.45); ABG PO2 134 mmHg (85-104); ABG TCO2 41.7 mEq/L (20-26); Blood Gas FiO2 40 %
[2016-06-30 17:11] LABS: ABG PCO2 78 mmHg (35-45)
--- NOTE | 2016-06-30 21:24 | Palliative - Consult Note ---
Date of Encounter: 06/30/16 Time of Encounter: 09:30 - Assessment and Plan (1) Goals of care, counseling/discussion Current Visit: Yes Status: Acute Assessment and plan: After family discussion with the ICU team and palliative care, Mr. Grayson was compassionately extubated to BiPAP to best align with his previously known wishes according to his advanced directives. We will continue to monitor his clinical course and further discuss goals of care as the patient condition warrants. Plan for family meeting tomorrow to discuss further goals of care including hospice eligibility. (2) Acute and chronic respiratory failure Current Visit: Yes Status: Acute Assessment and plan: Management per ICU team Qualifiers: Respiratory failure complication: hypoxia and hypercapnia Qualified Code(s) : J96.21 - Acute and chronic respiratory failure with hypoxia; J96.22 - Acute and chronic respiratory failure with hypercapnia (3) Dyspnea Current Visit: No Status: Acute Assessment and plan: Supplemental oxygen, BiPAP as tolerated, avoid LAW FIRM RECEPTIONIST depressants at this time unless condition continues to deteriorate. Palliative care will follow Qualifiers: Dyspnea type: unspecified Qualified Code(s): R06.00 - Dyspnea, unspecified Palliative-CN HPI - Data of Consult Patient: known to practice within the last 3 years Consult date: 06/30/16 Requesting Physician: Isreal Escalante MD [facility] - Consult Narrative Palliative Care/Comfort Measures: Palliative care Reason for consult: Goals of care History of present illness: Mr. Grayson is a 71 year old male known to the palliative care team from prior admission. Mr. Grayson resides in his home with the care of his son, Maynor. Mr. Grayson has a past history of COPD, chronic respiratory failure on home oxygen and BiPAP, CHF, coronary artery disease, GERD, hyperlipidemia, hypertension, hypothyroidism. According to documentation, over the past 2 days prior to admission the patient had been developing altered mental status and somnolence. He has been utilizing the BiPAP for approximately 10-12 hours per day over the last several weeks. The patient's son had concerns with elevated CO2 levels and sought further care in the emergency department. Upon evaluation in the emergency department, Mr. Grayson was found to be hypoxic and hypercapnic. These findings, along with an altered mental status, lead him to be endotracheal intubated and placed on mechanical ventilation. He was transitioned to the intensive care unit for further workup and care. Upon admission to the intensive care unit, and investigation into the patient's previously known wishes, it appears that Mr. Grayson did not want be placed on mechanical ventilation for any period of time according to his advanced directives. After gathering the patient's family members including son Maynor, nephew Taj (primary power of culvert installer), and sister to discuss goals of care. The patient was compassionately extubated to BiPAP therapy to follow his previously known wishes. The patient's family was very concerned with upholding his values and prior known intent for his healthcare. The palliative care team was consulted to assist with goals of care planning and symptom management. Mr. Grayson has been seeking medical treatment at the ID. He resides in the home under the care of his son. He has ID home-based care, including home BiPAP. He follows with [place] [facility] for his pacemaker. Last interrogation was April 2016. CC: Isreal Escalante MD Past Med Surg Social Fam HX - Past Medical History Medical history: arthritis, CHF, COPD, coronary artery disease, GERD, hyperlipidemia, hypertension, myocardial infarction, thyroid disease, syncope, other Psychiatric history: no psych history - Past Surgical History Surgical History: appendectomy, pacemaker/AICD, other ([facility]. He had stents placed in June per patient. ), pacemaker - Social History Smoking Status: Current every day smoker Smokeless Tobacco Status: No Alcohol use: none Drug use: none - Family History Mother Adopted: No Family Member Ethnicity: Non- Living Status: Hx Family Cancer: Yes (uncertain) Father Adopted: No Family Member Ethnicity: Non- Living Status: Hx Family Cardiac Disorders: Yes Hx Family Respiratory Disorders: Yes Hx Family Cancer: Yes (colon) Hx Family GI Disorders: No Hx Family Endocrine Disorder: Yes (diabetic type 2) Hx Family Neuromuscular Disorders: No Hx Family Neurologic Disorders: No Hx Family HEENT Disorders: No Hx Family Autoimmune Disorders: No Medications and Allergies Albuterol Sulfate [Albuterol Inhaler] 2 puff IH Q4HR PRN 01/04/15 [History] Aspirin Enteric Coated [Aspirin EC] 81 mg PO QAM 01/04/15 [History] Atorvastatin [Lipitor] 40 mg PO HS 01/04/15 [History] Loratadine [Claritin] 10 mg PO QAM 01/04/15 [History] Multivitamin [Multi-Day Vitamins] 1 tab PO QAM 01/04/15 [History] Om3-Dha/Epa/D3/Lutein/Zeazanth [Eye [place] Advantage Softgel] 1 cap PO BID [History] Omeprazole [PriLOSEC] 20 mg PO QAM 01/04/15 [History] Tiotropium [Spiriva] 2 puff IH DAILY 01/04/15 [History] Topiramate [Topamax] 100 mg PO BID 01/04/15 [History] Acetaminophen [Tylenol] 650 mg PO Q6HR PRN 06/21/15 [History] Carvedilol [Coreg] 3.125 - 6.25 mg PO BID 08/12/15 [History] Clopidogrel [Plavix] 75 mg PO QAM 08/12/15 [History] Isosorbide MONOnitrate (24 HR) [Imdur] 30 mg PO QAM 08/12/15 [History] Ropinirole [Requip] 0.25 mg PO HS 08/12/15 [History] Dimethyl Fumarate [Tecfidera] 240 mg PO BID 09/30/15 [History] Lactobacillus [Culturelle] 1 each PO DAILY 09/30/15 [History] Salsalate [Disalcid] 750 mg PO TID PRN 09/30/15 [History] Tamsulosin [Flomax] 0.4 mg PO DAILY 09/30/15 [History] Albuterol Neb [Proventil Neb] 2.5 mg IH Q4HR PRN 01/02/16 [History] Budesonide/Formoterol 160/4.5 [Symbicort 160/4.5] 2 puff IH BIDR 01/02/16 [ History] Capsaicin [Arthritis Pain Relief] 1 appl TP TID PRN 01/02/16 [History] Docusate [Colace] 100 mg PO BID 01/02/16 [History] Gabapentin [Neurontin] 300 mg PO TID 01/02/16 [History] Guaifenesin [Tab Tussin] 400 mg PO TID PRN 01/02/16 [History] Lactose-Reduced Food [Ensure Plus] 1 bottle PO TID 01/02/16 [History] Levothyroxine [Synthroid] 50 mcg PO QAM 01/02/16 [History] Nitroglycerin [Nitrostat] 0.4 mg SL AD PRN 01/02/16 [History] Ondansetron ODT [Zofran ODT] 4 mg SL Q6HR PRN #12 tab.rapdis 06/22/16 [Rx] Acetaminophen w/Cod 300-30 mg [Tylenol w/Codeine #3] 1 tab PO Q6HR PRN 06/30/16 [History] Lisinopril 2.5 mg PO AD PRN 06/30/16 [History] Allergies Aluminum Allergy (Verified 01/01/16 16:35) Hives moxifloxacin Allergy (Verified 01/01/16 16:35) Swelling of Lip/Tongue/Throat Nickel Allergy (Verified 01/01/16 16:35) Rash [place] And Derivatives Adverse Reaction (Verified 01/01/16 16:35) See Comments MOUTH SORES magnesium Adverse Reaction (Verified 01/01/16 16:35) See Comments BURNING WITH URINATION metal Allergy (Uncoded 01/04/15 09:53) Rash ROS unobtainable: due to mental status Palliative Care-Exam - Constitutional Vitals: Temp Pulse Resp BP Pulse Ox 97.7 F 87 15 122/78 99 06/30/16 16:00 06/30/16 16:00 06/30/16 16:13 06/30/16 16:00 06/30/16 16:13 General appearance: Present: average body habitus, no acute distress - Eye Eye exam: Present: EOMI Pupils: Present: PERRL - ENT ENT exam: Present: mucous membranes dry - Respiratory Respiratory exam: Absent: accessory muscle use, respiratory distress Additional comments: Mr. Grayson is intubated on mechanical ventilation - Cardiovascular Cardiovascular exam: Present: irregular rhythm. Absent: tachycardia - GI/Abdominal Exam GI/Abdominal exam: Present: normal bowel sounds, soft. Absent: tenderness - Catheter Type: Urethral (Reyes) - Neurological Exam Neurological exam: Present: alert, no focal deficits, strengths equal and symetr throughout - Psychiatric Psychiatric exam: Absent: agitated, anxious - Skin Skin exam: Present: dry, warm Internal Medicine - CN: Reslt - Labs CBC & Chem 7: 06/30/16 02:49 06/30/16 02:49 Labs: Urine 06/30/16 Range/Units 06:44 Urine Color Yellow (Yellow) Urine Clarity Clear (Clear) Urine pH 6.5 (5.0-8.0) pH Units Ur Specific [place] 1.019 (1.010-1.025) Urine Protein 30 H (Neg-Trace) mg/dL Urine Glucose (UA) Normal (Normal) mg/dL - ABG Interpretation ABG results: ABG ABG pH 7.31 pH Units (7.32-7.45) L 06/30/16 16:59 ABG pCO2 78 mmHg (35-45) H* 06/30/16 16:59 ABG pO2 134 mmHg (85-104) H 06/30/16 16:59 ABG O2 Saturation 99 % (95-98) H 06/30/16 16:59 - Impressions Impressions Chest X-Ray 06/30/16 06:31 IMPRESSION: 1. The orogastric tube tip and side port are noted in the gastric body. 2. Emphysema. D/ / 06/30/2016 07:36:18 Manoj Louise MD / jessa Interpreting Provider: Manoj Louise MD Consult Discharge Plan - Plan Referrals: [facility],PCP [Primary Care Provider] - Palliative Quality Palliative Quality: Screen for Code Status: Yes, Screen for Goals of Care: Yes, Screen for Pain: Yes, If Pain Regimen Started, Initiate Bowel Regimen: NA, Screen for Nausea/Vomitting: Yes Code Status: 06/30/16 06:02 Resuscitation Status: Active [RES] Routine Comment: Resuscitation Status: [id number]
[2016-06-30] MEDS: Ipratropium/Albuterol Neb 3 ML IH SCH (21:32)
[2016-06-30] MEDS: Chlorhexidine Rinse 15 ML MOUTHWASH MM SCH (21:32)
[2016-06-30] MEDS: *HR* Heparin 5,000 UNIT/ML VIAL SQ SCH (21:45)
[2016-07-01] MEDS: MethylPREDNISolone 40 MG/ML VIAL IVP SCH ×3 (00:13→17:30)
[2016-07-01] MEDS: Ipratropium/Albuterol Neb 3 ML IH SCH ×4 (03:55→22:24)
[2016-07-01] MEDS: *HR* Heparin 5,000 UNIT/ML VIAL SQ SCH ×3 (06:15→21:05)
[2016-07-01] MEDS: Pantoprazole 40 MG VIAL IVPB SCH (06:16)
--- NOTE | 2016-07-01 08:57 | Pulmonology Progress Note ---
<Keyshawn Syed - Last Filed: 07/01/16 10:41> Date of Encounter: 07/01/16 Time of Encounter: 07:00 Assessment and Plan (1) Altered mental status Current Visit: Yes Status: Acute Resolved. Altered mental status secondary to hypercapnia, and mental status improved with temporary intubation baseline CO2 around 70. Qualifiers: Altered mental status type: disorientation Qualified Code(s): R41.0 - Disorientation, unspecified (2) Acute and chronic respiratory failure Current Visit: Yes Status: Acute Patient has underlying end-stage COPD as a following a palliative care. Admitted with worsening altered mental status and hypercapnia. Admitting PCO2 was 108. Patient failed trial of BiPAP and was intubated. Per patient's wishes with consultation of patient's family patient was extubated on and is currently on 4 L nasal cannula. Plan: - Continue nasal cannula oxygen and BiPAP - Antibiotic coverage azithromycin 500 mg every 24 hours - Solu-Medrol 40 mg IV every 8 hours - Dual nebs and albuterol sulfate nebulizer. Qualifiers: Respiratory failure complication: hypoxia and hypercapnia Qualified Code(s) : J96.21 - Acute and chronic respiratory failure with hypoxia; J96.22 - Acute and chronic respiratory failure with hypercapnia (3) COPD exacerbation Current Visit: Yes Status: Acute Patient admitted with increasing shortness of breath, altered mental status, hypercapnia, known end-stage COPD. Plan as listed above. (4) Hypercapnia Current Visit: Yes Status: Acute Patient has end-stage COPD with a baseline CO2 of 70. CO2 upon admission was 108 secondary to COPD exacerbation with worsening CO2 retention. Patient tolerating BiPAP no repeat blood gas this morning. (5) Hypertension Current Visit: Yes Status: Chronic Starting Coreg 3.125 mg, blood pressure stable. Qualifiers: Hypertension type: essential hypertension (6) CAD (coronary artery disease) Current Visit: Yes Status: Chronic Known history of coronary artery disease, VT, stent placement. Plan: - Restarted Plavix and aspirin, atorvastatin - Start Coreg 3.125 mg twice a day Qualifiers: Coronary Disease-Associated Artery/Lesion type: [place] artery [place] vs. transplanted heart: [place] heart Associated angina: without angina Qualified Code(s): I25.10 - Atherosclerotic heart disease of [place] coronary artery without angina pectoris (7) Acute relapsing multiple sclerosis Current Visit: No Status: Acute History of multiple sclerosis. Stable Plan: - Restarted Tecfidera (8) Hypothyroidism Current Visit: Yes Status: Chronic Restart home dose levothyroxine. Qualifiers: Hypothyroidism type: unspecified Qualified Code(s): E03.9 - Hypothyroidism , unspecified (9) DVT prophylaxis Current Visit: No Status: Acute Subcutaneous heparin every 8 hours. Subjective Principal diagnosis: acute resp. failure Interval history: Mr. Grayson has been seen and evaluated patient bedside this morning. He is tolerating the BiPAP but said he feels dry because of the constant blowing of the air. He vocalized how he was upset that he was intubated in the emergency department even though his wishes were previously clearly stated that he did not want to be intubated. He also requests breakfast this morning. He denies any pain or discomforts. He denies any other concerns or complaints at this time. Objective PUL Vital signs: Last Vital Signs Temp 97.6 F 07/01/16 08:03 Pulse 85 07/01/16 08:00 Resp 15 07/01/16 08:00 BP 120/70 07/01/16 08:00 Pulse Ox 99 07/01/16 08:00 Gen. well-developed, well-nourished, no acute distress alert and oriented interacting. Tolerating BiPAP and intermittent nasal cannula oxygen. HEENT normocephalic, atraumatic, pupils equal reactive, oral mucosa dry, nasal cavity. No bruit, trachea midline no crepitus to palpation Cardiac regular rate and rhythm positive S1-S2, radial pulses 2+ bilateral Respiratory diminished inspiratory and expiratory breath sounds with diffuse wheezes in all lung pink Abdomen soft, nontender to palpation, positive bowel sounds Extremities symmetric bilateral, patient moving spontaneously. Patient has redness to his toes bilaterally. Skin appears to be dry Results - Laboratory Findings CBC and BMP: 07/01/16 08:30 07/01/16 08:30 ABG ABG pH 7.31 pH Units (7.32-7.45) L 06/30/16 16:59 ABG pCO2 78 mmHg (35-45) H* 06/30/16 16:59 ABG pO2 134 mmHg (85-104) H 06/30/16 16:59 ABG O2 Saturation 99 % (95-98) H 06/30/16 16:59 Abnormal lab findings: Abnormal lab results MCV 102.3 fL (83.0-100.0) H 06/30/16 02:49 MCHC 30.1 g/dL (31.6-35.5) L 06/30/16 02:49 Lymphocytes # 0.4 K/mcL (0.6-4.6) L 06/30/16 02:49 ABG pH 7.31 pH Units (7.32-7.45) L 06/30/16 16:59 ABG pCO2 78 mmHg (35-45) H* 06/30/16 16:59 ABG pO2 134 mmHg (85-104) H 06/30/16 16:59 ABG HCO3 39.3 mEQ/L (21-27) H 06/30/16 16:59 ABG Total CO2 41.7 mEq/L (20-26) H 06/30/16 16:59 ABG O2 Saturation 99 % (95-98) H 06/30/16 16:59 ABG Base Excess 9.7 mEq/L (-2.0 to 3.0) H 06/30/16 16:59 Potassium 4.7 mEq/L (3.5-4.5) H 06/30/16 02:49 Carbon Dioxide 36 mEq/L (19-29) H 06/30/16 02:49 Glucose 161 mg/dL (70-99) H 06/30/16 02:49 POC Glucose 172 (58-89) H 06/30/16 07:06 Urine Protein 30 mg/dL (Neg-Trace) H 06/30/16 06:44 Urine Blood Large (Negative) H 06/30/16 06:44 Urine Microscopic RBC TNTC per hpf (0-3) H 06/30/16 06:44 Ur Squamous Epith Cells Moderate per lpf (None-Few) H 06/30/16 06:44 - Clinical Findings Intake & Output: Intake & Output 06/30/16 07/01/16 07/01/16 22:59 07:59 15:59 Intake Total Output Total 125 / 125 Balance -125 / -125 Weight Consult Discharge Plan - Plan [facility]errals: [facility] [Primary Care Provider] - <Juaquin Álvarez W - Last Filed: 07/01/16 11:17> Objective PUL Vital signs: Last Vital Signs Temp 97.6 F 07/01/16 08:03 Pulse 87 07/01/16 10:00 Resp 12 07/01/16 10:00 BP 130/67 07/01/16 10:00 Pulse Ox 96 07/01/16 10:00 Results - Laboratory Findings CBC and BMP: 07/01/16 08:30 07/01/16 08:30 ABG ABG pH 7.31 pH Units (7.32-7.45) L 06/30/16 16:59 ABG pCO2 78 mmHg (35-45) H* 06/30/16 16:59 ABG pO2 134 mmHg (85-104) H 06/30/16 16:59 ABG O2 Saturation 99 % (95-98) H 06/30/16 16:59 Abnormal lab findings: Abnormal lab results RBC 4.11 M/mcL (4.19-5.50) L 07/01/16 08:30 MCV 102.2 fL (83.0-100.0) H 07/01/16 08:30 MCHC 31.0 g/dL (31.6-35.5) L 07/01/16 08:30 ABG pH 7.31 pH Units (7.32-7.45) L 06/30/16 16:59 ABG pCO2 78 mmHg (35-45) H* 06/30/16 16:59 ABG pO2 134 mmHg (85-104) H 06/30/16 16:59 ABG HCO3 39.3 mEQ/L (21-27) H 06/30/16 16:59 ABG Total CO2 41.7 mEq/L (20-26) H 06/30/16 16:59 ABG O2 Saturation 99 % (95-98) H 06/30/16 16:59 ABG Base Excess 9.7 mEq/L (-2.0 to 3.0) H 06/30/16 16:59 Carbon Dioxide 37 mEq/L (19-29) H 07/01/16 08:30 BUN 30 mg/dL (8-26) H 07/01/16 08:30 Glucose 119 mg/dL (70-99) H 07/01/16 08:30 POC Glucose 172 (58-89) H 06/30/16 07:06 Calculated Osmolality 301 (280-300) H 07/01/16 08:30 Urine Protein 30 mg/dL (Neg-Trace) H 06/30/16 06:44 Urine Blood Large (Negative) H 06/30/16 06:44 Urine Microscopic RBC TNTC per hpf (0-3) H 06/30/16 06:44 Ur Squamous Epith Cells Moderate per lpf (None-Few) H 06/30/16 06:44 - Clinical Findings Intake & Output: Intake & Output 06/30/16 07/01/16 07/01/16 22:59 07:59 15:59 Intake Total Output Total 125 / 125 Balance -125 / -125 Weight - Attending Attestation I examined this patient and my medical decision-making was reviewed with the SUPERVISOR BLAST FURNACE/PA/Advanced Practice Nurse/Resident Physician. I agree with the documented findings, disposition and treatment plan as described except to the extent set forth below. Impression: 1. Acute hypoxic hypercarbic respiratory failure 2. COPD with exacerbation 3. Multiple sclerosis 4. Advanced directives Recs: 1. Improving. Cont NC O2 to keep sat >88%. BiPAP at night 2. switch to enteral steroids. cont BDs. 5 days azithro 3. Cont home meds 4. DNAR/DNI. This was again confirmed by patient he was understandably upset that intubation was performed yesterday and wanted to know why that happened I explained that there was some confusion in the emergency department and his son Jhon is at the bedside did not clearly understand his wishes as was documented in his advanced directives that as soon as I learned that this had happened by mistake I had the endotracheal tube removed. I gave the number for the patient advocated by also discussed the case with our in-house primary counselor. Stable for transfer to [facility] telemetry if bed available otherwise can be transferred back to the [facility] tomorrow for ongoing care
[2016-07-01 09:15] LABS: Basophils % 0.3 %; Immature Granulocytes % 0.5 % (0-4); Lymphocytes # 0.6 K/mcL (0.6-4.6); Lymphocytes % 6.6 %; Mean Corpuscular Hemoglobin 31.6 pg (28.0-33.3); Mean Corpuscular Volume 102.2 fL (83.0-100.0); Mean Platelet Volume 10.8 fL (9.4-12.4); Monocytes # 0.4 K/mcL (0.0-1.3); Monocytes % 4.3 %; Neutrophils # 8.4 K/mcL (1.6-8.9); Platelet Count 173 K/mcL (140-400); Red Blood Count 4.11 M/mcL (4.19-5.50); Red Cell Distribution Width 12.9 % (11.5-14.5); Segmented Neutrophils % 88.3 %
[2016-07-01 09:27] LABS: BUN/Creatinine Ratio 26 (6-26); Blood Urea Nitrogen 30 mg/dL (8-26); Calcium 9.7 mg/dL (8.6-10.8); Carbon Dioxide 37 mEq/L (19-29); Chloride 98 mEq/L (98-109); Glucose 119 mg/dL (70-99); Osmolality,Calculated 301 (280-300); Potassium 4.5 mEq/L (3.5-4.5); Sodium 142 mEq/L (136-145); eGFR For African Americans > 60 (> 60); eGFR For Non-African Americans > 60 (> 60)
[2016-07-01] MEDS: Chlorhexidine Rinse 15 ML MOUTHWASH MM SCH ×2 (09:35→21:05)
[2016-07-01] MEDS: Azithromycin 500 MG in D5% in Water 250 ML IVPB SCH (12:55)
[2016-07-01] MEDS: Aspirin 81 MG TAB.CHEW PO SCH (12:55)
--- NOTE | 2016-07-01 14:15 | Palliative Progress Note ---
Date of Encounter: 07/01/16 Time of Encounter: 11:30 - Assessment and plan (1) Goals of care, counseling/discussion Current Visit: Yes Status: Acute Assessment and plan: Reviewed goals of care with patient. He was able to recall prior conversations with palliative care team back in December 2015. Mr. Grayson once again to confirm to his desires for DNR CCA/DNI. He was able to recall prior hospice conversations, and once again confirmed that he is not interested in hospice care at this time. Upon discharge, he plans to return home under the care of his son. He would like to have the [facility] home based program renewed. director of cardiopulmonary services will continue to follow with the patient. (2) Acute and chronic respiratory failure Current Visit: Yes Status: Acute Assessment and plan: Management per ICU team Qualifiers: Respiratory failure complication: hypoxia and hypercapnia Qualified Code(s) : J96.21 - Acute and chronic respiratory failure with hypoxia; J96.22 - Acute and chronic respiratory failure with hypercapnia (3) Dyspnea Current Visit: No Status: Acute Assessment and plan: BiPAP as needed, supplemental O2, activity as tolerated, avoid [employer] depressants if able Qualifiers: Dyspnea type: unspecified Qualified Code(s): R06.00 - Dyspnea, unspecified - Time Spent With Patient Total time spent is greater than 50% in coordination of care (as documented) at patient's floor/unit and/or counseling patient: - Subjective Interval history: Mr. Grayson is lying in bed, watching television. He denies any acute pain issues, only his chronic pain related to his MS. He reports his shortness of breath is slightly above baseline, but greatly improved from admission. His appetite is fair and he ate greater than 50% of his breakfast. - Constitutional Vitals: Abnormal lab results RBC 4.11 M/mcL (4.19-5.50) L 07/01/16 08:30 MCV 102.2 fL (83.0-100.0) H 07/01/16 08:30 MCHC 31.0 g/dL (31.6-35.5) L 07/01/16 08:30 ABG pH 7.31 pH Units (7.32-7.45) L 06/30/16 16:59 ABG pCO2 78 mmHg (35-45) H* 06/30/16 16:59 ABG pO2 134 mmHg (85-104) H 06/30/16 16:59 ABG HCO3 39.3 mEQ/L (21-27) H 06/30/16 16:59 ABG Total CO2 41.7 mEq/L (20-26) H 06/30/16 16:59 ABG O2 Saturation 99 % (95-98) H 06/30/16 16:59 ABG Base Excess 9.7 mEq/L (-2.0 to 3.0) H 06/30/16 16:59 Carbon Dioxide 37 mEq/L (19-29) H 07/01/16 08:30 BUN 30 mg/dL (8-26) H 07/01/16 08:30 Glucose 119 mg/dL (70-99) H 07/01/16 08:30 POC Glucose 172 (58-89) H 06/30/16 07:06 Calculated Osmolality 301 (280-300) H 07/01/16 08:30 Urine Protein 30 mg/dL (Neg-Trace) H 06/30/16 06:44 Urine Blood Large (Negative) H 06/30/16 06:44 Urine Microscopic RBC TNTC per hpf (0-3) H 06/30/16 06:44 Ur Squamous Epith Cells Moderate per lpf (None-Few) H 06/30/16 06:44 General appearance: Present: cooperative, no acute distress Exam: 71-year-old male patient, alert/oriented, smiling, cooperative, in no acute distress - Eye Eye exam: Present: EOMI Pupils: Present: PERRL - Respiratory Respiratory exam: Present: decreased breath sounds, wheezes Additional comments: On supplemental O2 via nasal cannula, moist nonproductive cough, poor air movement throughout bilateral lung pink - Cardiovascular Cardiovascular exam: Present: RRR - GI/Abdominal GI/Abdominal exam: Present: normal bowel sounds, soft. Absent: tenderness - Extremities Exam Extremities exam: Absent: pedal edema Additional comments: Fifth toe of the left foot with purple discoloration. Patient states this has been present for a month following an injury. Discoloration to toes on the right foot at "baseline" according to the patient - Neurological Exam Neurological exam: Present: alert, oriented X3, no focal deficits, strengths equal and symetr throughout - Psychiatric Psychiatric exam: Absent: agitated, anxious - Skin Skin exam: Present: dry, warm Palliative Quality Palliative Quality: Screen for Code Status: Yes, Screen for Goals of Care: Yes, Screen for Pain: Yes, If Pain Regimen Started, Initiate Bowel Regimen: NA, Screen for Nausea/Vomitting: Yes Code Status: 06/30/16 06:02 Resuscitation Status: Active [RES] Routine Comment: Resuscitation Status: [id number] - Labs CBC & Chem 7: 07/01/16 08:30 07/01/16 08:30 Labs: Laboratory Results - last 24 hr 06/30/16 07/01/16 07/01/16 16:59 08:30 08:30 WBC 9.5 RBC 4.11 L Hgb 13.0 D Hct 42.0 MCV 102.2 H MCH 31.6 MCHC 31.0 L RDW 12.9 Plt Count 173 MPV 10.8 Immature Gran % 0.5 Seg Neutrophils % 88.3 Lymphocytes % 6.6 Monocytes % 4.3 Eosinophils % 0.0 Basophils % 0.3 Neutrophils # 8.4 Lymphocytes # 0.6 Monocytes # 0.4 Eosinophils # 0.0 Basophils # 0.0 ABG pH 7.31 L ABG pCO2 78 H* ABG pO2 134 H ABG HCO3 39.3 H ABG Total CO2 41.7 H ABG O2 Saturation 99 H ABG Base Excess 9.7 H Blood Gas Modality BIPAP Inspired O2 40 Sodium 142 Potassium 4.5 Chloride 98 Carbon Dioxide 37 H BUN 30 H Creatinine 1.15 Est GFR ( Amer) > 60 Est GFR (Non-Af Amer) > 60 BUN/Creatinine Ratio 26 Glucose 119 H Calculated Osmolality 301 H Calcium 9.7 - ABG Interpretation ABG results: ABG ABG pH 7.31 pH Units (7.32-7.45) L 06/30/16 16:59 ABG pCO2 78 mmHg (35-45) H* 06/30/16 16:59 ABG pO2 134 mmHg (85-104) H 06/30/16 16:59 ABG O2 Saturation 99 % (95-98) H 06/30/16 16:59 Consult Discharge Plan - Plan [facility]errals: [facility] [Primary Care Provider] -
[2016-07-01] MEDS: Topiramate 100 MG TABLET PO SCH ×2 (16:06→21:06)
[2016-07-01] MEDS: (Dimethyl Fumarate [Tecfidera] 240 MG) PO SCH ×2 (16:06→21:06)
[2016-07-02] MEDS: MethylPREDNISolone 40 MG/ML VIAL IVP SCH ×4 (00:24→23:52)
[2016-07-02] MEDS ORDERED: *HR* HYDROcodone/Acet 5/325 mg TABLET PO ONE (01:01)
[2016-07-02] MEDS: Ipratropium/Albuterol Neb 3 ML IH SCH ×4 (04:42→21:11)
[2016-07-02] MEDS: *HR* Heparin 5,000 UNIT/ML VIAL SQ SCH ×3 (05:48→22:21)
[2016-07-02] MEDS: Pantoprazole 40 MG VIAL IVPB SCH (05:48)
[2016-07-02 05:54] LABS: Bilirubin,Urine Negative (Negative); Blood,Urine Large (Negative); Clarity,Urine Cloudy (Clear); Color,Urine Yellow (Yellow); Glucose,Urine (UA) Normal (Normal); Ketones,Urine Negative (Negative); Leukocyte Esterase,Urine Small (Negative); Nitrite,Urine Negative (Negative); PH,Urine 7.5 pH Units (5.0-8.0); Protein,Urine 30 mg/dL (Neg-Trace); Urobilinogen,Urine Normal (Normal)
[2016-07-02 05:56] LABS: Bacteria,Urine Few per hpf (None-Few); Hyaline Casts,Urine None Seen per lpf (None-Few); RBC,Urine TNTC per hpf (0-3); Squamous Epithelial Cell,Urine Many per lpf (None-Few)
[2016-07-02 06:02] LABS: Alanine Aminotransferase 12 Units/L (0-55); Albumin 3.2 g/dL (3.5-5.0); Albumin/Globulin Ratio 1.2 (1.1-2.2); Alkaline Phosphatase 60 Units/L (38-126); Aspartate Amino Transferase 14 Units/L (5-34); BUN/Creatinine Ratio 26 (6-26); Bilirubin,Total 0.4 mg/dL (0.2-1.2); Blood Urea Nitrogen 27 mg/dL (8-26); Calcium 9.1 mg/dL (8.6-10.8); Carbon Dioxide 34 mEq/L (19-29); Chloride 99 mEq/L (98-109); Globulin 2.7 g/dL (2.4-3.5); Glucose 128 mg/dL (70-99); Osmolality,Calculated 293 (280-300); Potassium 4.7 mEq/L (3.5-4.5); Sodium 138 mEq/L (136-145); Total Protein 5.9 g/dL (6.0-8.3); eGFR For African Americans > 60 (> 60); eGFR For Non-African Americans > 60 (> 60)
[2016-07-02] MEDS: Topiramate 100 MG TABLET PO SCH ×2 (09:15→22:19)
[2016-07-02] MEDS: Aspirin 81 MG TAB.CHEW PO SCH (09:17)
[2016-07-02] MEDS: Chlorhexidine Rinse 15 ML MOUTHWASH MM SCH (09:17)
[2016-07-02] MEDS: (Dimethyl Fumarate [Tecfidera] 240 MG) PO SCH ×2 (09:24→22:19)
--- NOTE | 2016-07-02 10:47 | Event Note ---
Date of Encounter: 07/02/16 Time of Encounter: 09:50 Patient resting on bipap. No family present. States "feels better", hoping to go home soon. Symptoms controlled at present. Has DME's already set up at home. Remains DNR/DNI as established last Dec. [facility] as prior to admission, does not want hospice at this time. Palliative will sign off, please reconsult PRN.
[2016-07-02] MEDS: Azithromycin 500 MG in D5% in Water 250 ML IVPB SCH (12:26)
--- NOTE | 2016-07-02 15:14 | Electrocardiograph Report ---
[place] [id number] Test Date: 2016-06-30 Pat Name: Keyshawn Grayson Department: 103 Room: 2NE23 Gender: M Floor Technician: : [id number] Requested By: Iris Diehl Order Number: [id number] Reading MD: Jacky Sin Measurements Intervals [place] Rate: 109 P: 83 CO: 187 QRS: -81 QRSD: 167 T: 95 QT: 361 QTc: 425 Interpretive Statements ELECTRONIC VENTRICULAR PACEMAKER ABNORMAL RHYTHM ECG Electronically Signed On 07-02-2016 15:12:52 EDT by Jacky Sin
--- NOTE | 2016-07-02 16:02 | Internal Med Progress Note ---
Date of Encounter: 07/02/16 Time of Encounter: 10:00 - Assessment and plan (1) Acute and chronic respiratory failure Current Visit: Yes Status: Acute Assessment and plan: Due to COPD exacerbation. We will continue BiPAP supportive treatment. Treat underlying COPD exacerbation. Qualifiers: Respiratory failure complication: hypoxia and hypercapnia Qualified Code(s) : J96.21 - Acute and chronic respiratory failure with hypoxia; J96.22 - Acute and chronic respiratory failure with hypercapnia (2) COPD exacerbation Current Visit: Yes Status: Acute Assessment and plan: We will continue BiPAP supportive treatment. Continue antibiotics, steroids, and bronchodilator. (3) DVT prophylaxis Current Visit: Yes Status: Acute Assessment and plan: Heparin subcutaneously (4) CAD (coronary artery disease) Current Visit: Yes Status: Chronic Assessment and plan: Continue home medication aspirin, Plavix, atorvastatin, nitrate, JOE inhibitor , and beta bernarda. Qualifiers: Coronary Disease-Associated Artery/Lesion type: [place] artery [place] vs. transplanted heart: [place] heart Associated angina: without angina Qualified Code(s): I25.10 - Atherosclerotic heart disease of [place] coronary artery without angina pectoris (5) CHF (congestive heart failure) Current Visit: No Status: Acute Assessment and plan: Old chart and reviewed. Echo on 01/02/16 shows LVEF 45%. On beta bernarda and JOE inhibitor. No signs of CHF exacerbation. Qualifiers: Congestive heart failure type: diastolic Congestive heart failure chronicity: chronic Qualified Code(s): I50.32 - Chronic diastolic (congestive ) heart failure (6) Hypothyroidism Current Visit: Yes Status: Chronic Assessment and plan: Continue home medication. Qualifiers: Hypothyroidism type: unspecified Qualified Code(s): E03.9 - Hypothyroidism , unspecified - Time Spent With Patient 25 - 35 minutes - Subjective Interval history: Patient is a 71-year-old male admitted for COPD exacerbation. His past medical history significant for CHF, COPD, chronic respiratory failure on home oxygen and home BiPAP, CAD, hyperlipidemia, hypertension, hypothyroidism, S/P pacemaker /AICD. Patient was intubated in the emergency room and admitted to ICU. He was extubated and transferred to floor now. I saw and examined the patient. He is still in acute respiratory distress, on BiPAP. Vital signs stable. Will continue antibiotic, steroid, and bronchodilator treatment. Continue supportive treatment with BiPAP, gradually tapered down and changed to nasal cannula as possible. - Constitutional Vitals: Temp Pulse Resp BP Pulse Ox 97.6 F 75 15 138/72 98 07/02/16 12:00 07/02/16 12:00 07/02/16 12:00 07/02/16 12:00 07/02/16 12:00 General appearance: Present: mild distress, A&O X 3, answers questions appropriately - Head Head exam: Present: atraumatic, normocephalic - Eye Eye exam: Present: PERRL, conjuntiva pink, sclera anicteric Pupils: Present: PERRL - Neck Neck exam general surgery: Present: supple, trachea midline. Absent: lymphadenopathy - Respiratory Respiratory exam: Present: CTAB, wheezes (Diffused wheezes bilaterally). Absent : accessory muscle use, rales, rhonchi - Cardiovascular Cardiovascular exam: Present: RRR, +S1, +S2. Absent: diastolic murmur, gallop, rubs, systolic murmur - GI/Abdominal GI/Abdominal exam: Present: normal bowel sounds, soft, no peritoneal signs. Absent: distended, tenderness - Extremities Exam Extremities exam: Present: warm, radial pulses palpable and symetrical. Absent : calf tenderness, cyanotic, pedal edema - Neurological Exam Neurological exam: Present: CN II-XII intact, oriented X3, no focal deficits. Absent: pronater drift, facial droop, speech deficit - Skin Skin exam: Present: dry, intact Internal Medicine: Result - Labs CBC & Chem 7: 07/01/16 08:30 07/02/16 05:19 Labs: BMP 07/02/16 05:19 Sodium 138 Potassium 4.7 H Chloride 99 Carbon Dioxide 34 H BUN 27 H Creatinine 1.04 Glucose 128 H Calcium 9.1 Liver Function 07/02/16 Range/Units 05:19 Total Bilirubin 0.4 (0.2-1.2) mg/dL AST 14 (5-34) Units/L ALT 12 (0-55) Units/L Alkaline Phosphatase 60 (38-126) Units/L Albumin 3.2 L (3.5-5.0) g/dL Urine 07/02/16 Range/Units 05:30 Urine Color Yellow (Yellow) Urine Clarity Cloudy A (Clear) Urine pH 7.5 (5.0-8.0) pH Units Ur Specific [place] 1.020 (1.010-1.025) Urine Protein 30 H (Neg-Trace) mg/dL Urine Glucose (UA) Normal (Normal) mg/dL - ABG Interpretation ABG results: ABG ABG pH 7.31 pH Units (7.32-7.45) L 06/30/16 16:59 ABG pCO2 78 mmHg (35-45) H* 06/30/16 16:59 ABG pO2 134 mmHg (85-104) H 06/30/16 16:59 ABG O2 Saturation 99 % (95-98) H 06/30/16 16:59 Consult Discharge Plan - Plan [facility]errals: [facility] [Primary Care Provider] -
[2016-07-02] MEDS: Budesonide/Formoterol 160/4.5 MDI IH SCH (21:11)
[2016-07-03] MEDS: Ipratropium/Albuterol Neb 3 ML IH SCH ×4 (04:31→22:32)
[2016-07-03] MEDS: *HR* Heparin 5,000 UNIT/ML VIAL SQ SCH ×3 (06:10→20:47)
[2016-07-03 06:43] LABS: Basophils % 0.2 %; Eosinophils % 0.1 %; Hematocrit 42.3 % (37.5-50.1); Hemoglobin 13.2 g/dL (12.9-16.9); Immature Granulocytes % 0.7 % (0-4); Lymphocytes # 0.6 K/mcL (0.6-4.6); Lymphocytes % 7.2 %; Mean Corpuscular HGB Conc 31.2 g/dL (31.6-35.5); Mean Corpuscular Hemoglobin 30.7 pg (28.0-33.3); Mean Corpuscular Volume 98.4 fL (83.0-100.0); Mean Platelet Volume 10.5 fL (9.4-12.4); Monocytes # 0.4 K/mcL (0.0-1.3); Monocytes % 4.2 %; Neutrophils # 7.5 K/mcL (1.6-8.9); Platelet Count 185 K/mcL (140-400); Red Cell Distribution Width 13.2 % (11.5-14.5); Segmented Neutrophils % 87.6 %
[2016-07-03 07:09] LABS: BUN/Creatinine Ratio 30 (6-26); Blood Urea Nitrogen 27 mg/dL (8-26); Calcium 9.1 mg/dL (8.6-10.8); Carbon Dioxide 28 mEq/L (19-29); Chloride 102 mEq/L (98-109); Glucose 129 mg/dL (70-99); Osmolality,Calculated 297 (280-300); Potassium 3.9 mEq/L (3.5-4.5); Sodium 140 mEq/L (136-145); eGFR For African Americans > 60 (> 60); eGFR For Non-African Americans > 60 (> 60)
[2016-07-03] MEDS ORDERED: Azithromycin 250 MG TABLET PO SCH (09:00)
[2016-07-03] MEDS: Isosorbide MONOnitrate (24 HR) 30 MG TAB.ER.24H PO SCH (09:16)
[2016-07-03] MEDS: MethylPREDNISolone 40 MG/ML VIAL IVP SCH ×2 (09:18→15:30)
[2016-07-03] MEDS: Aspirin 81 MG TAB.CHEW PO SCH (09:18)
[2016-07-03] MEDS: Topiramate 100 MG TABLET PO SCH ×2 (09:18→20:38)
[2016-07-03] MEDS: (Dimethyl Fumarate [Tecfidera] 240 MG) PO SCH ×2 (09:23→21:50)
[2016-07-03] MEDS: Budesonide/Formoterol 160/4.5 MDI IH SCH ×2 (11:21→22:32)
--- NOTE | 2016-07-03 14:29 | Internal Med Progress Note ---
Date of Encounter: 07/03/16 Time of Encounter: 14:25 - Assessment and plan (1) Acute and chronic respiratory failure Current Visit: Yes Status: Acute Assessment and plan: acute on chronic hypoxic and hypercapneic resp failure Due to COPD exacerbation 2ry to acute bronchitis viral vs bacterial COmpleted 4 days of azithromycin Taper prednisone BIPAP PRN Was intubated but is a DNR cc a DNI transferred from ICU on 07/02/16. Qualifiers: Respiratory failure complication: hypoxia and hypercapnia Qualified Code(s) : J96.21 - Acute and chronic respiratory failure with hypoxia; J96.22 - Acute and chronic respiratory failure with hypercapnia (2) COPD exacerbation Current Visit: Yes Status: Acute Assessment and plan: We will continue BiPAP supportive treatment. Continue steroids, and bronchodilator. (3) Respiratory acidosis Current Visit: Yes Status: Acute (4) Former tobacco use Current Visit: No Status: Acute (5) Hypercapnic respiratory failure Current Visit: No Status: Acute Qualifiers: Chronicity: acute on chronic Qualified Code(s): J96.22 - Acute and chronic respiratory failure with hypercapnia (6) Mobitz type 2 second degree AV block Current Visit: No Status: Acute Assessment and plan: s/p pacemaker (7) Artificial pacemaker Current Visit: No Status: Chronic (8) Systolic and diastolic CHF w/reduced LV function, NYHA class 4 Current Visit: No Status: Chronic Assessment and plan: EF 45 % start lasix 20 mg daily requests appointment with cardiology ( Dr Sin) (9) Cellulitis of toe of left foot Current Visit: Yes Status: Acute Assessment and plan: 5th left toe ulcer/acute cellulitis send culture start Ancef x ray of left foot (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 - Constitutional Vitals: Temp Pulse Resp BP Pulse Ox 97.9 F 93 18 149/90 95 07/03/16 07:25 07/03/16 11:17 07/03/16 11:22 07/03/16 11:17 07/03/16 11:22 General appearance: Present: mild distress, A&O X 3, answers questions appropriately - Head Head exam: Present: atraumatic, normocephalic - Eye Eye exam: Present: PERRL, conjuntiva pink, sclera anicteric Pupils: Present: PERRL - Neck Neck exam general surgery: Present: supple, trachea midline. Absent: lymphadenopathy - Respiratory Respiratory exam: Present: decreased breath sounds (very diminished BS), CTAB. Absent: accessory muscle use, rales, rhonchi, wheezes - Cardiovascular Cardiovascular exam: Present: RRR, +S1, +S2. Absent: diastolic murmur, gallop, rubs, systolic murmur - GI/Abdominal GI/Abdominal exam: Present: normal bowel sounds, soft, no peritoneal signs. Absent: distended, tenderness - Extremities Exam Extremities exam: Present: warm, radial pulses palpable and symetrical. Absent : calf tenderness, cyanotic, pedal edema - Neurological Exam Neurological exam: Present: CN II-XII intact, oriented X3, no focal deficits. Absent: pronater drift, facial droop, speech deficit - Skin Skin exam: Present: dry, intact Internal Medicine: Result - Labs CBC & Chem 7: 07/03/16 05:32 07/03/16 05:32 Labs: Short CBC 07/03/16 Range/Units 05:32 WBC 8.6 (4.3-11.1) K/mcL Hgb 13.2 (12.9-16.9) g/dL Hct 42.3 (37.5-50.1) % Plt Count 185 (140-400) K/mcL Neutrophils # 7.5 (1.6-8.9) K/mcL BMP 07/03/16 05:32 Sodium 140 Potassium 3.9 Chloride 102 Carbon Dioxide 28 BUN 27 H Creatinine 0.90 Glucose 129 H Calcium 9.1 - ABG Interpretation ABG results: ABG ABG pH 7.31 pH Units (7.32-7.45) L 06/30/16 16:59 ABG pCO2 78 mmHg (35-45) H* 06/30/16 16:59 ABG pO2 134 mmHg (85-104) H 06/30/16 16:59 ABG O2 Saturation 99 % (95-98) H 06/30/16 16:59 Consult Discharge Plan - Plan [facility]errals: [facility] [Primary Care Provider] -
--- NOTE | 2016-07-03 15:25 | Cardiology Consult Note ---
Date of Encounter: 07/03/16 Time of Encounter: 15:09 Assessment and Plan (1) CHF (congestive heart failure) Current Visit: No Status: Acute last echo from 01/02/16 showed LVEF 45%, global and regional LV systolic dysfunction with atypical septal motion seocndary to RV pacing, indeterminate diastolic function, normal RV size and function, mild mitral regurg, no pulmonary HTN. Patient was last seen by Dr. Jacky Sin in clinic on 05/07/16. At that time, he had a device check. He had 6 month follow up on 04/06/16: at that time, no medications were adjusted and he was stable from a cardiac standpoint. Plan was to be re evaluated in 3 months and re evaluate EF at that time. Cardiology was consulted because patient requested to see cardiology while in patient. He would like to know when he can stop Plavix so that he can have kidney stone extraction done [facility]. Patient has been on Plavix for about a year, so he may stop his Plavix, per Dr. Jacky Sin. No interventions needed at this time. Cardiology will sign off. Please re- consult PRN. Qualifiers: Congestive heart failure type: systolic Congestive heart failure chronicity : chronic Qualified Code(s): I50.22 - Chronic systolic (congestive) heart failure (2) CAD (coronary artery disease) Current Visit: Yes Status: Chronic Patient had Cath done on 06/22/15 for NSTEMI. Cath report showed severe two vessel CAD s/p successful PCI of proximal LAD with TRISH Continue ASA, Statin, plavix, Imdur, Qualifiers: Coronary Disease-Associated Artery/Lesion type: [place] artery [place] vs. transplanted heart: [place] heart Associated angina: without angina Qualified Code(s): I25.10 - Atherosclerotic heart disease of [place] coronary artery without angina pectoris (3) Acute and chronic respiratory failure Current Visit: Yes Status: Acute Etiology likely secondary to acute COPD exacerbation and worsening MS. Being followed by palliative care. Patient had worsening mental status and hypercapnia upon admission. Continue Nasal [place] oxygen and BiPAP, IV steroids, azithromycin, nebs. management per primary team. Qualifiers: Respiratory failure complication: hypoxia and hypercapnia Qualified Code(s) : J96.21 - Acute and chronic respiratory failure with hypoxia; J96.22 - Acute and chronic respiratory failure with hypercapnia (4) COPD exacerbation Current Visit: Yes Status: Acute Plan as above. Management per primary team. (5) Essential hypertension Current Visit: Yes Status: Acute blood pressures well controlled at this time. continue home med Lisinopril Discussion w patient/family: The assessment and plan as outlined above was discussed with the patient and/or family members who expressed understanding and agreement. All questions were answered. Thank you for involving us in the care of your patient. Please call with any questions. History of Present Illness Consult date: 07/03/16 Requesting physician: Abhishek Peace Consult reason: patient requested Chief complaint: confusion History of present illness: Mr. Grayson is a 71 year old male with PMHx of CHF, COPD, chronic respiratory failure, (on home oxygen, BiPAP), MS, CAD, GERD, HLD, HTN, AR, hypothyroidism, s /p pacemaker/AICD. Patient was admitted on 06/30 with CC of confusion x2 days, increased sleepiness that was progressively getting worse. His son was concerned for CO2 retention, so he brought him to the hospital. Initial ABG showed pH 7.24, PCO2 108 (his baseline is around 60s-70s). Patient was admitted with acute and chronic respiratory failure, COPD exacerbation. Patient had minimal improvement with BiPAP so he was subsequently intubated on mechanical ventilation and was monitored in the ICU. Patient was DNI, so was extubated afterwards. Palliative care was consulted to discuss goals of care with patient and family. He wished to be DNRCCA/DNI, and is not interested in hospice care at this time. His altered mental status is resolved at this time, likely secondary to hypercapnia. Patient is on BiPAP now with clinical improvement. Past Med Surg Social Fam HX - Past Medical History Medical history: arthritis, CHF, COPD, coronary artery disease, GERD, hyperlipidemia, hypertension, myocardial infarction, thyroid disease, syncope, other Psychiatric history: no psych history - Past Surgical History Surgical History: appendectomy, pacemaker/AICD, other ([facility]. He had stents placed in June per patient. ) - Social History Smoking Status: Current every day smoker Smokeless Tobacco Status: No Alcohol use: none Drug use: none - Family History Mother Adopted: No Family Member Ethnicity: Non- Living Status: Hx Family Cancer: Yes (uncertain) Father Adopted: No Family Member Ethnicity: Non- Living Status: Hx Family Cardiac Disorders: Yes Hx Family Respiratory Disorders: Yes Hx Family Cancer: Yes (colon) Hx Family GI Disorders: No Hx Family Endocrine Disorder: Yes (diabetic type 2) Hx Family Neuromuscular Disorders: No Hx Family Neurologic Disorders: No Hx Family HEENT Disorders: No Hx Family Autoimmune Disorders: No Medications and Allergies Albuterol Sulfate [Albuterol Inhaler] 2 puff IH Q4HR PRN 01/04/15 [History] Aspirin Enteric Coated [Aspirin EC] 81 mg PO QAM 01/04/15 [History] Atorvastatin [Lipitor] 40 mg PO HS 01/04/15 [History] Loratadine [Claritin] 10 mg PO QAM 01/04/15 [History] Multivitamin [Multi-Day Vitamins] 1 tab PO QAM 01/04/15 [History] Om3-Dha/Epa/D3/Lutein/Zeazanth [Eye [place] Advantage Softgel] 1 cap PO BID [History] Omeprazole [PriLOSEC] 20 mg PO QAM 01/04/15 [History] Tiotropium [Spiriva] 2 puff IH DAILY 01/04/15 [History] Topiramate [Topamax] 100 mg PO BID 01/04/15 [History] Acetaminophen [Tylenol] 650 mg PO Q6HR PRN 06/21/15 [History] Carvedilol [Coreg] 3.125 - 6.25 mg PO BID 08/12/15 [History] Clopidogrel [Plavix] 75 mg PO QAM 08/12/15 [History] Isosorbide MONOnitrate (24 HR) [Imdur] 30 mg PO QAM 08/12/15 [History] Ropinirole [Requip] 0.25 mg PO HS 08/12/15 [History] Dimethyl Fumarate [Tecfidera] 240 mg PO BID 09/30/15 [History] Lactobacillus [Culturelle] 1 each PO DAILY 09/30/15 [History] Salsalate [Disalcid] 750 mg PO TID PRN 09/30/15 [History] Tamsulosin [Flomax] 0.4 mg PO DAILY 09/30/15 [History] Albuterol Neb [Proventil Neb] 2.5 mg IH Q4HR PRN 01/02/16 [History] Budesonide/Formoterol 160/4.5 [Symbicort 160/4.5] 2 puff IH BIDR 01/02/16 [ History] Capsaicin [Arthritis Pain Relief] 1 appl TP TID PRN 01/02/16 [History] Docusate [Colace] 100 mg PO BID 01/02/16 [History] Gabapentin [Neurontin] 300 mg PO TID 01/02/16 [History] Guaifenesin [Tab Tussin] 400 mg PO TID PRN 01/02/16 [History] Lactose-Reduced Food [Ensure Plus] 1 bottle PO TID 01/02/16 [History] Levothyroxine [Synthroid] 50 mcg PO QAM 01/02/16 [History] Nitroglycerin [Nitrostat] 0.4 mg SL AD PRN 01/02/16 [History] Ondansetron ODT [Zofran ODT] 4 mg SL Q6HR PRN #12 tab.rapdis 06/22/16 [Rx] Acetaminophen w/Cod 300-30 mg [Tylenol w/Codeine #3] 1 tab PO Q6HR PRN 06/30/16 [History] Lisinopril 2.5 mg PO AD PRN 06/30/16 [History] Cephalexin [Keflex] 500 mg PO QID #24 capsule 07/04/16 [Rx] Furosemide [Lasix] 20 mg PO DAILY #30 tablet 07/04/16 [Rx] Mupirocin [Bactroban Oint] 1 appl TP BID #1 tube 07/04/16 [Rx] PredniSONE 10 mg PO DAILY 20 Days 07/04/16 [Rx] Allergies Aluminum Allergy (Verified 01/01/16 16:35) Hives moxifloxacin Allergy (Verified 01/01/16 16:35) Swelling of Lip/Tongue/Throat Nickel Allergy (Verified 01/01/16 16:35) Rash [place] And Derivatives Adverse Reaction (Verified 01/01/16 16:35) See Comments MOUTH SORES magnesium Adverse Reaction (Verified 01/01/16 16:35) See Comments BURNING WITH URINATION metal Allergy (Uncoded 01/04/15 09:53) Rash All Systems Review: A 10-system review of systems was performed and is negative for pertinent findings except as documented above in the HPI. - Constitutional Constitutional: fatigue, no anorexia, no chills, no fever(s) - Cardiovascular Cardiovascular: dyspnea on exertion, no chest pain at rest, no leg edema - Respiratory Respiratory: cough - Neurological Neurological: no dizziness, no syncope Physical Examination Vital Signs, Last 4 Hours Pulse Resp BP Pulse Ox 07/03/16 11:22 18 95 07/03/16 11:17 93 18 149/90 95 General: Conversant, No Apparent Distress HEENT: Atraumatic, Normocephaly Cardiac: Other (distant heart sounds. Pacemaker in place. ) Lungs: Other (decreased breath sounds throughout ) Neuro: Alert and responsive Abdomen: Soft, Non-Tender Extremities: No Cyanosis, No Edema, Other (ulcer present on left big toe and left fifth toe. lower extremities are cool to touch bilaterally. ) Results 07/03/16 05:32 07/03/16 05:32 Lab Results 07/03/16 07/03/16 05:32 05:32 WBC 8.6 Hgb 13.2 Hct 42.3 Plt Count 185 Sodium 140 Potassium 3.9 Chloride 102 Carbon Dioxide 28 BUN 27 H Creatinine 0.90 Glucose 129 H Calcium 9.1 Consult Discharge Plan - Plan Instructions: Myocardial Infarction (DC), Heart Failure (DC), Acute Respiratory Distress Syndrome (DC), Cellulitis (DC), Cellulitis (GEN), Hypothyroidism (DC), Chronic Obstructive Pulmonary Disease (DC), Chronic Hypertension (DC), Cigarette Smoking and Your Health, Director Manufacturing Engineering (GEN), Cellulitis, Director Manufacturing Engineering (GEN) Additional Instructions: Follow with primary care physician within the next 7 days. Continue Keflex for 6 more days. Taper prednisone. May discontinue Plavix if there is any surgical intervention scheduled. Continue Bactroban, culture will be available within the next 2 days. Consider treating for UTI Enterococcus faecalis if he becomes symptomatic as it is sensitive to nitrofurantoin and ampicillin. Follow -up with podiatry and vascular surgery within the next week. [facility] Provider[facility] - Prescriptions: Cephalexin [Keflex] 500 mg PO QID #24 capsule Furosemide [Lasix] 20 mg PO DAILY #30 tablet Mupirocin [Bactroban Oint] 1 appl TP BID #1 tube PredniSONE 10 mg PO DAILY 20 Days
[2016-07-03] MEDS: Furosemide 20 MG TABLET PO SCH (15:28)
[2016-07-03] MEDS: ceFAZolin 1,000 MG in D5% in Water (Mini-Bag+) 100 ML IVPB SCH (15:29)
[2016-07-04] MEDS: Ipratropium/Albuterol Neb 3 ML IH SCH ×4 (03:55→22:22)
[2016-07-04] MEDS: *HR* Heparin 5,000 UNIT/ML VIAL SQ SCH ×3 (06:45→23:52)
[2016-07-04] MEDS: ceFAZolin 1,000 MG in D5% in Water (Mini-Bag+) 100 ML IVPB SCH ×4 (06:46→23:53)
[2016-07-04] MEDS: MethylPREDNISolone 40 MG/ML VIAL IVP SCH ×4 (09:00→23:52)
[2016-07-04] MEDS: Isosorbide MONOnitrate (24 HR) 30 MG TAB.ER.24H PO SCH (09:01)
[2016-07-04] MEDS: Aspirin 81 MG TAB.CHEW PO SCH (09:01)
[2016-07-04] MEDS: Topiramate 100 MG TABLET PO SCH ×2 (09:01→20:30)
[2016-07-04] MEDS: Furosemide 20 MG TABLET PO SCH (09:01)
[2016-07-04] MEDS: (Dimethyl Fumarate [Tecfidera] 240 MG) PO SCH ×2 (09:04→20:32)
--- NOTE | 2016-07-04 09:43 | Discharge Summary ---
Date of Encounter: 07/04/16 Time of Encounter: 09:41 - Discharge Diagnosis (1) Acute and chronic respiratory failure Priority: Primary Status: Acute Comments: acute on chronic hypoxic and hypercapneic resp failure Due to COPD exacerbation 2ry to acute bronchitis viral vs bacterial COmpleted 4 days of azithromycin Taper prednisone BIPAP PRN Qualifiers: Respiratory failure complication: hypoxia and hypercapnia Qualified Code(s) : J96.21 - Acute and chronic respiratory failure with hypoxia; J96.22 - Acute and chronic respiratory failure with hypercapnia (2) COPD exacerbation Priority: Primary Status: Acute (3) Respiratory acidosis Priority: Primary Status: Acute (4) Former tobacco use Priority: Secondary Status: Acute (5) Hypercapnic respiratory failure Priority: Primary Status: Acute Qualifiers: Chronicity: acute on chronic Qualified Code(s): J96.22 - Acute and chronic respiratory failure with hypercapnia (6) Mobitz type 2 second degree AV block Priority: Secondary Status: Acute Comments: s/p pacemaker (7) Artificial pacemaker Priority: Secondary Status: Chronic (8) Systolic and diastolic CHF w/reduced LV function, NYHA class 4 Priority: Secondary Status: Chronic Comments: EF 45 % (9) Cellulitis of toe of left foot Priority: Secondary Status: Acute Comments: will be discharged on Keflex. CUlture final report pending X ray did not show osteomyelitis. May start mupirocin (10) Multiple sclerosis, secondary progressive Priority: Secondary Status: Acute - Discharge Medications Prescriptions: Cephalexin [Keflex] 500 mg PO QID #24 capsule Furosemide [Lasix] 20 mg PO DAILY #30 tablet Mupirocin [Bactroban Oint] 1 appl TP BID #1 tube PredniSONE 10 mg PO DAILY 20 Days Home Medications: Albuterol Sulfate [Albuterol Inhaler] 2 puff IH Q4HR PRN 01/04/15 [History] Aspirin Enteric Coated [Aspirin EC] 81 mg PO QAM 01/04/15 [History] Atorvastatin [Lipitor] 40 mg PO HS 01/04/15 [History] Loratadine [Claritin] 10 mg PO QAM 01/04/15 [History] Multivitamin [Multi-Day Vitamins] 1 tab PO QAM 01/04/15 [History] Om3-Dha/Epa/D3/Lutein/Zeazanth [Eye [place] Advantage Softgel] 1 cap PO BID [History] Omeprazole [PriLOSEC] 20 mg PO QAM 01/04/15 [History] Tiotropium [Spiriva] 2 puff IH DAILY 01/04/15 [History] Topiramate [Topamax] 100 mg PO BID 01/04/15 [History] Acetaminophen [Tylenol] 650 mg PO Q6HR PRN 06/21/15 [History] Carvedilol [Coreg] 3.125 - 6.25 mg PO BID 08/12/15 [History] Clopidogrel [Plavix] 75 mg PO QAM 08/12/15 [History] Isosorbide MONOnitrate (24 HR) [Imdur] 30 mg PO QAM 08/12/15 [History] Ropinirole [Requip] 0.25 mg PO HS 08/12/15 [History] Dimethyl Fumarate [Tecfidera] 240 mg PO BID 09/30/15 [History] Lactobacillus [Culturelle] 1 each PO DAILY 09/30/15 [History] Salsalate [Disalcid] 750 mg PO TID PRN 09/30/15 [History] Tamsulosin [Flomax] 0.4 mg PO DAILY 09/30/15 [History] Albuterol Neb [Proventil Neb] 2.5 mg IH Q4HR PRN 01/02/16 [History] Budesonide/Formoterol 160/4.5 [Symbicort 160/4.5] 2 puff IH BIDR 01/02/16 [ History] Capsaicin [Arthritis Pain Relief] 1 appl TP TID PRN 01/02/16 [History] Docusate [Colace] 100 mg PO BID 01/02/16 [History] Gabapentin [Neurontin] 300 mg PO TID 01/02/16 [History] Guaifenesin [Tab Tussin] 400 mg PO TID PRN 01/02/16 [History] Lactose-Reduced Food [Ensure Plus] 1 bottle PO TID 01/02/16 [History] Levothyroxine [Synthroid] 50 mcg PO QAM 01/02/16 [History] Nitroglycerin [Nitrostat] 0.4 mg SL AD PRN 01/02/16 [History] Ondansetron ODT [Zofran ODT] 4 mg SL Q6HR PRN #12 tab.rapdis 06/22/16 [Rx] Acetaminophen w/Cod 300-30 mg [Tylenol w/Codeine #3] 1 tab PO Q6HR PRN 06/30/16 [History] Lisinopril 2.5 mg PO AD PRN 06/30/16 [History] Cephalexin [Keflex] 500 mg PO QID #24 capsule 07/04/16 [Rx] Furosemide [Lasix] 20 mg PO DAILY #30 tablet 07/04/16 [Rx] Mupirocin [Bactroban Oint] 1 appl TP BID #1 tube 07/04/16 [Rx] PredniSONE 10 mg PO DAILY 20 Days 07/04/16 [Rx] Allergies/Adverse Reactions: Allergies Aluminum Allergy (Verified 01/01/16 16:35) Hives moxifloxacin Allergy (Verified 01/01/16 16:35) Swelling of Lip/Tongue/Throat Nickel Allergy (Verified 01/01/16 16:35) Rash [place] And Derivatives Adverse Reaction (Verified 01/01/16 16:35) See Comments MOUTH SORES magnesium Adverse Reaction (Verified 01/01/16 16:35) See Comments BURNING WITH URINATION metal Allergy (Uncoded 01/04/15 09:53) Rash Date of admission: 06/30/16 06:03 [facility] Consults: 06/30/16 06:06 Consult to Pulmonology [CONS] Routine Consulting Provider: [facility]m [facility] Zenaida Reason for Consult: Acute on chronic resp failure Call Completed: No 06/30/16 10:09 Consult to Palliative Care [CONS] Stat Comment: Consulting Provider: Palliative Care Zenaida 07/03/16 15:44 Consult to Cardiology [CONS] Routine Comment: Consulting Provider: Cardiology Zenaida Reason for Consult: chf, consult requested by the patient Call Completed: Yes - Patient Status Disposition: Transfer Inpatient Rehab Fac Condition: Good - Discharge Instructions Instructions: Myocardial Infarction (DC), Heart Failure (DC), Acute Respiratory Distress Syndrome (DC), Cellulitis (DC), Cellulitis (GEN), Hypothyroidism (DC), Chronic Obstructive Pulmonary Disease (DC), Chronic Hypertension (DC), Cigarette Smoking and Your Health, Manager Wound Care (GEN), Cellulitis, Manager Wound Care (GEN) [facility] With: [facility] Care Provider[facility] - Additional Instructions: Follow with primary care physician within the next 7 days. Continue Keflex for 6 more days. Taper prednisone. May discontinue Plavix if there is any surgical intervention scheduled. Continue Bactroban, culture will be available within the next 2 days. Consider treating for UTI Enterococcus faecalis if he becomes symptomatic as it is sensitive to nitrofurantoin and ampicillin. Follow -up with podiatry and vascular surgery within the next week. - Diet and Activity Activity: wear oxygen at all times Diet: low fat, low cholesterol Hospital course: Mr. Grayson is a 71 year old male with a Past medical history significant for systolic and diastolic CHF ejection fraction of 45%, COPD oxygen dependent, Chronic respiratory failure on home oxygen and home BiPAP, coronary artery disease, GERD, hyperlipidemia, hypertension, myocardial infarction, hypothyroidism, s/p pacemaker/AICD, remote history of tobacco use, CAD status post stents on Plavix. For the last 2 days apparently prior to admission he was confused and more sleepy which got worse. Confusion was worse and he was noted to be hypoxic on the pulse oximetry, when he was of BiPAP. His son was concerned about CO2 retention and brought him to the emergency department. He was hypercapnic with PCO2 of 108 (his baseline is apparently at about 70) and pH of 7.24. He had a trail for BiPAP, with minimal improvmentin pCO2. Hence he was intubated and started on mechanical ventilation. He is admitted to ICU for further management. Completed 4 days of a cyst from [facility] and IV steroids were switched to prednisone. Heis a DNR cc a DNI transferred from ICU on 07/02/16. The patient started complaining of left hand pain on his left fifth toe. An x- ray did not show any osteomyelitis. He was started on Ancef showing small improvement, the culture was sent from an ulcer on the medial side of his left fifth toe. Also a UA/urine culture showed growth of enterococcus sensitive to ampicillin, nitrofurantoin and vancomycin for the patient is asymptomatic. Consider treatment if he becomes symptomatic. The patient requested to have a cardiology consult as he was scheduled to see Dr. Sin. Cardiology recommended that he it is possible to discontinue Plavix as he has been taking it for the past year. He had a cardiac catheterization with stent placed at the beginning of June 2015. If you require any surgical procedure he would be safe to discontinue Plavix. For now I would continue Plavix as his highly suspicious for peripheral vascular disease patient really in his left foot. - Time Spent with Patient Total time spent providing and/or coordinating discharge services: Greater than 30 minutes (40 min) - Constitutional Vitals: Temp Pulse Resp BP Pulse Ox 98.9 F 73 15 121/67 99 07/04/16 07:00 07/04/16 07:00 07/04/16 07:00 07/04/16 07:00 07/04/16 07:00 General appearance: Present: mild distress, A&O X 3, answers questions appropriately - Head Head exam: Present: atraumatic, normocephalic - Eye Eye exam: Present: PERRL, conjuntiva pink, sclera anicteric Pupils: Present: PERRL - Neck Neck exam general surgery: Present: supple, trachea midline. Absent: lymphadenopathy - Respiratory Respiratory exam: Present: decreased breath sounds (Very diminished breath sounds), CTAB. Absent: accessory muscle use, rales, rhonchi, wheezes - Cardiovascular Cardiovascular exam: Present: RRR, +S1, +S2. Absent: diastolic murmur, gallop, rubs, systolic murmur - GI/Abdominal GI/Abdominal exam: Present: normal bowel sounds, soft, no peritoneal signs. Absent: distended, tenderness - Extremities Exam Extremities exam: Present: warm, radial pulses palpable and symetrical. Absent : calf tenderness, cyanotic, pedal edema - Neurological Exam Neurological exam: Present: CN II-XII intact, oriented X3, no focal deficits. Absent: pronater drift, facial droop, speech deficit - Skin Skin exam: Present: dry. Absent: intact (Left fifth toe internal ulcer 0.5 cm in diameter with erythema in almost the entire left fifth toe/tender to touch)
--- NOTE | 2016-07-04 09:58 | Physician Discharge Referral ---
ExtendedCare Referral Info Provider in Charge after Transfer: PCP Institutional Level of Care: Skilled - Diagnosis (1) Acute and chronic respiratory failure Status: Acute (2) COPD exacerbation Status: Acute (3) Respiratory acidosis Status: Acute (4) Former tobacco use Status: Acute (5) Hypercapnic respiratory failure Status: Acute (6) Mobitz type 2 second degree AV block Status: Acute (7) Artificial pacemaker Status: Chronic (8) Systolic and diastolic CHF w/reduced LV function, NYHA class 4 Status: Chronic (9) Cellulitis of toe of left foot Status: Acute (10) Multiple sclerosis, secondary progressive Status: Acute - Transfer Medications Prescriptions: Cephalexin [Keflex] 500 mg PO QID #24 capsule Furosemide [Lasix] 20 mg PO DAILY #30 tablet Mupirocin [Bactroban Oint] 1 appl TP BID #1 tube PredniSONE 10 mg PO DAILY 20 Days Home Medications: Albuterol Sulfate [Albuterol Inhaler] 2 puff IH Q4HR PRN 01/04/15 [History] Aspirin Enteric Coated [Aspirin EC] 81 mg PO QAM 01/04/15 [History] Atorvastatin [Lipitor] 40 mg PO HS 01/04/15 [History] Loratadine [Claritin] 10 mg PO QAM 01/04/15 [History] Multivitamin [Multi-Day Vitamins] 1 tab PO QAM 01/04/15 [History] Om3-Dha/Epa/D3/Lutein/Zeazanth [Eye [place] Advantage Softgel] 1 cap PO BID [History] Omeprazole [PriLOSEC] 20 mg PO QAM 01/04/15 [History] Tiotropium [Spiriva] 2 puff IH DAILY 01/04/15 [History] Topiramate [Topamax] 100 mg PO BID 01/04/15 [History] Acetaminophen [Tylenol] 650 mg PO Q6HR PRN 06/21/15 [History] Carvedilol [Coreg] 3.125 - 6.25 mg PO BID 08/12/15 [History] Clopidogrel [Plavix] 75 mg PO QAM 08/12/15 [History] Isosorbide MONOnitrate (24 HR) [Imdur] 30 mg PO QAM 08/12/15 [History] Ropinirole [Requip] 0.25 mg PO HS 08/12/15 [History] Dimethyl Fumarate [Tecfidera] 240 mg PO BID 09/30/15 [History] Lactobacillus [Culturelle] 1 each PO DAILY 09/30/15 [History] Salsalate [Disalcid] 750 mg PO TID PRN 09/30/15 [History] Tamsulosin [Flomax] 0.4 mg PO DAILY 09/30/15 [History] Albuterol Neb [Proventil Neb] 2.5 mg IH Q4HR PRN 01/02/16 [History] Budesonide/Formoterol 160/4.5 [Symbicort 160/4.5] 2 puff IH BIDR 01/02/16 [ History] Capsaicin [Arthritis Pain Relief] 1 appl TP TID PRN 01/02/16 [History] Docusate [Colace] 100 mg PO BID 01/02/16 [History] Gabapentin [Neurontin] 300 mg PO TID 01/02/16 [History] Guaifenesin [Tab Tussin] 400 mg PO TID PRN 01/02/16 [History] Lactose-Reduced Food [Ensure Plus] 1 bottle PO TID 01/02/16 [History] Levothyroxine [Synthroid] 50 mcg PO QAM 01/02/16 [History] Nitroglycerin [Nitrostat] 0.4 mg SL AD PRN 01/02/16 [History] Ondansetron ODT [Zofran ODT] 4 mg SL Q6HR PRN #12 tab.rapdis 06/22/16 [Rx] Acetaminophen w/Cod 300-30 mg [Tylenol w/Codeine #3] 1 tab PO Q6HR PRN 06/30/16 [History] Lisinopril 2.5 mg PO AD PRN 06/30/16 [History] Cephalexin [Keflex] 500 mg PO QID #24 capsule 07/04/16 [Rx] Furosemide [Lasix] 20 mg PO DAILY #30 tablet 07/04/16 [Rx] Mupirocin [Bactroban Oint] 1 appl TP BID #1 tube 07/04/16 [Rx] PredniSONE 10 mg PO DAILY 20 Days 07/04/16 [Rx] Allergies/Adverse Reactions: Allergies Aluminum Allergy (Verified 01/01/16 16:35) Hives moxifloxacin Allergy (Verified 09/11/16 16:35) Swelling of Lip/Tongue/Throat Nickel Allergy (Verified 01/01/16 16:35) Rash [place] And Derivatives Adverse Reaction (Verified 01/01/16 16:35) See Comments MOUTH SORES magnesium Adverse Reaction (Verified 01/01/16 16:35) See Comments BURNING WITH URINATION metal Allergy (Uncoded 01/04/15 09:53) Rash - Respiratory Orders Oxygen / L per min (3 L) Smoking Cessation: Smoking cessation has been advised. For more information, call the [employer] Quit Line at 2-257-GIFC-NOW. - Advance Directives Code Status: DNR-Arrest/Don't Intubate - Treatments List/Other: Follow with primary care physician within the next 7 days. Continue Keflex for 6 more days. Taper prednisone. May discontinue Plavix if there is any surgical intervention scheduled. Continue Bactroban, culture will be available within the next 2 days. Consider treating for UTI Enterococcus faecalis if he becomes symptomatic as it is sensitive to nitrofurantoin and ampicillin. Follow -up with podiatry and vascular surgery within the next week. - Diet Orders No Added Salt (ANIKET) CERTIFICATION: I certify that the transfer of the above named patient to an Extended Care Facility is necessary for the continuing treatment of the diagnosis listed. The above information is true and accurate reflection of patient's current condition. Confidential - Redisclosure prohibited without a patient's written consent.
[2016-07-04] MEDS: Budesonide/Formoterol 160/4.5 MDI IH SCH ×2 (10:39→22:22)
[2016-07-04 15:52] LABS: ABG Base Excess 9.5 mEq/L (-2.0 to 3.0); ABG HCO3 35.7 mEQ/L (21-27); ABG Oxygen Saturation 98 % (95-98); ABG PCO2 55 mmHg (35-45); ABG PH 7.42 pH Units (7.32-7.45); ABG PO2 109 mmHg (85-104); ABG TCO2 37.4 mEq/L (20-26)
[2016-07-04 15:53] LABS: Blood Gas FiO2 32 %
[2016-07-05] MEDS: Ipratropium/Albuterol Neb 3 ML IH SCH ×4 (04:15→23:01)
[2016-07-05] MEDS: *HR* Heparin 5,000 UNIT/ML VIAL SQ SCH ×3 (06:43→23:30)
[2016-07-05] MEDS: ceFAZolin 1,000 MG in D5% in Water (Mini-Bag+) 100 ML IVPB SCH ×3 (06:44→23:29)
[2016-07-05] MEDS: MethylPREDNISolone 40 MG/ML VIAL IVP SCH ×3 (08:39→23:29)
[2016-07-05] MEDS: Aspirin 81 MG TAB.CHEW PO SCH (08:40)
[2016-07-05] MEDS: Isosorbide MONOnitrate (24 HR) 30 MG TAB.ER.24H PO SCH (08:40)
[2016-07-05] MEDS: Furosemide 20 MG TABLET PO SCH (08:40)
[2016-07-05] MEDS: Topiramate 100 MG TABLET PO SCH ×2 (08:40→20:16)
[2016-07-05] MEDS: (Dimethyl Fumarate [Tecfidera] 240 MG) PO SCH ×2 (08:42→20:17)
--- NOTE | 2016-07-05 09:59 | Internal Med Progress Note ---
Date of Encounter: 07/05/16 Time of Encounter: 09:57 - Assessment and plan (1) Acute and chronic respiratory failure Current Visit: Yes Status: Acute Assessment and plan: acute on chronic hypoxic and hypercapneic resp failure Due to COPD exacerbation 2ry to acute bronchitis viral vs bacterial COmpleted 4 days of azithromycin Taper prednisone BIPAP PRN Was intubated but is a DNR cc a DNI transferred from ICU on 07/02/16. Qualifiers: Respiratory failure complication: hypoxia and hypercapnia Qualified Code(s) : J96.21 - Acute and chronic respiratory failure with hypoxia; J96.22 - Acute and chronic respiratory failure with hypercapnia (2) COPD exacerbation Current Visit: Yes Status: Acute Assessment and plan: We will continue BiPAP supportive treatment. Continue steroids, and bronchodilator. (3) Respiratory acidosis Current Visit: Yes Status: Acute (4) Former tobacco use Current Visit: No Status: Acute (5) Hypercapnic respiratory failure Current Visit: No Status: Acute Qualifiers: Chronicity: acute on chronic Qualified Code(s): J96.22 - Acute and chronic respiratory failure with hypercapnia (6) Mobitz type 2 second degree AV block Current Visit: No Status: Acute Assessment and plan: s/p pacemaker (7) Artificial pacemaker Current Visit: No Status: Chronic (8) Systolic and diastolic CHF w/reduced LV function, NYHA class 4 Current Visit: No Status: Chronic Assessment and plan: EF 45 % start lasix 20 mg daily requests appointment with cardiology ( Dr Sin) (9) Cellulitis of toe of left foot Current Visit: Yes Status: Acute Assessment and plan: 5th left toe ulcer/acute cellulitis, improving Culture did not grow any pathogens Continue Keflex upon discharge, can use mupirocin x ray of left foot did not show any signs of osteomyelitis May follow with podiatry (10) Multiple sclerosis, secondary progressive Current Visit: No Status: Acute Assessment and plan: curently on Tecfidera - Time Spent With Patient Greater than 35 minutes - Subjective Interval history: The patient was not able to be discharged yesterday as the [facility], the pH was 7.42 PCO2 55 and a PO2 of 109. Patient will be discharged later today [facility] by the [facility]. 07/05/2016 feeling less SOB, bringing up whitish phlegm , denies CP , no fever, no abdominal pain , no dysuria at all. - Constitutional Vitals: Temp Pulse Resp BP Pulse Ox 97.5 F L 80 18 151/75 98 07/05/16 07:58 07/05/16 07:58 07/05/16 07:58 07/05/16 07:58 07/05/16 07:58 General appearance: Present: mild distress, A&O X 3, answers questions appropriately - Head Head exam: Present: atraumatic, normocephalic - Eye Eye exam: Present: PERRL, conjuntiva pink, sclera anicteric Pupils: Present: PERRL - Neck Neck exam general surgery: Present: supple, trachea midline. Absent: lymphadenopathy - Respiratory Respiratory exam: Present: decreased breath sounds (Very diminished breath sounds), CTAB. Absent: accessory muscle use, rales, rhonchi, wheezes - Cardiovascular Cardiovascular exam: Present: RRR, +S1, +S2. Absent: diastolic murmur, gallop, rubs, systolic murmur - GI/Abdominal GI/Abdominal exam: Present: normal bowel sounds, soft, no peritoneal signs. Absent: distended, tenderness - Extremities Exam Extremities exam: Present: warm, radial pulses palpable and symetrical. Absent : calf tenderness, cyanotic, pedal edema Additional comments: Left fifth toe ulcer and cellulitis improving - Neurological Exam Neurological exam: Present: CN II-XII intact, oriented X3, no focal deficits. Absent: pronater drift, facial droop, speech deficit - Skin Skin exam: Present: dry, intact Internal Medicine: Result - Labs CBC & Chem 7: 07/03/16 05:32 07/03/16 05:32 - ABG Interpretation ABG results: ABG ABG pH 7.42 pH Units (7.32-7.45) 07/04/16 15:35 ABG pCO2 55 mmHg (35-45) H 07/04/16 15:35 ABG pO2 109 mmHg (85-104) H 07/04/16 15:35 ABG O2 Saturation 98 % (95-98) 07/04/16 15:35 Consult Discharge Plan - Plan Instructions: Myocardial Infarction (DC), Heart Failure (DC), Acute Respiratory Distress Syndrome (DC), Cellulitis (DC), Cellulitis (GEN), Hypothyroidism (DC), Chronic Obstructive Pulmonary Disease (DC), Chronic Hypertension (DC), Cigarette Smoking and Your Health, 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 Continue Keflex for 6 more days. Taper prednisone. May discontinue Plavix if there is any surgical intervention scheduled. Continue Bactroban, culture will be available within the next 2 days. Consider treating for UTI Enterococcus faecalis if he becomes symptomatic as it is sensitive to nitrofurantoin and ampicillin. Follow -up with podiatry and vascular surgery within the next week. [facility]errals: [facility] [Primary Care Provider[facility] - Prescriptions: Cephalexin [Keflex] 500 mg PO QID #24 capsule Furosemide [Lasix] 20 mg PO DAILY #30 tablet Mupirocin [Bactroban Oint] 1 appl TP BID #1 tube PredniSONE 10 mg PO DAILY 20 Days
[2016-07-05] MEDS: Budesonide/Formoterol 160/4.5 MDI IH SCH ×2 (10:41→23:01)
--- NOTE | 2016-07-05 21:04 | Vascular/Endovasc Consult Note ---
Date of Encounter: 07/05/16 Time of Encounter: 21:02 Assessment and Plan (1) PAD (peripheral artery disease) Current Visit: Yes Status: Chronic Patient has no palpable pulses at the right popliteal and right ankle. Surprisingly the right foot is actually warmer than the left. There are no ulcerations or signs of infection the right foot. The left or cellulitis. His pulses not palpable. Patient has ischemic changes to the left fifth toe. (2) Ischemic ulcer of toe of left foot Current Visit: Yes Status: Acute Ischemic left fifth toe with area of black discoloration on the medial aspect of the toe. Noninvasive testing as noted above demonstrates adequate circulation to the left foot. The patient is not a candidate for vascular intervention or endovascular therapy. According to noninvasive testing if the left toe should deteriorate consultation to podiatry should be considered with possible left fifth toe amputation under local anesthesia. From a vascular standpoint there is no objection for the patient be transferred to the [facility]. Qualifiers: Qualified Code(s): L97.521 - Non-pressure chronic ulcer of other part of left foot limited to breakdown of skin - History of Present Illness Consult date: 07/05/16 Consult reason: PAD Chief complaint: Left fifth toe pain History of present illness: Mr. Grayson is a 71 year old male Who was admitted to the hospital via the emergency room because of respiratory failure. The patient has a very long and complicated history in the reader of this consult is recommended to review the medical H&P. The patient has severe COPD as well as multiple sclerosis as well as congestive heart failure. The patient had been using a BiPAP at home and was found to have increasing levels of CO2 retention to over 100. A trial in the emergency room of BiPAP was unsuccessful and he was intubated. Apparently according to the patient tonight he states this is against his wishes and he does not want to be intubated as he has a DNR comfort care status. Somewhat long this admission the patient developed rectal pain and discoloration on the left toe. This has been a persistent problem for the patient. He denies any previous issues with his lower extremity circulation. He has not had any previous bypass grafting or endovascular interventions. He is limited in his ambulation and so there is no history of claudication. There is no history of ischemic rest pain. Noninvasive testing was performed tonight. This shows an ankle-brachial index of 0.65 on the right and 0.97 on the left. Of note the patient has no complaints in the right lower extremity or right foot. Past Med Surg Social Fam HX - Past Medical History Medical history: arthritis, CHF, COPD, coronary artery disease, GERD, hyperlipidemia, hypertension, myocardial infarction, thyroid disease, syncope, other Psychiatric history: no psych history - Past Surgical History Surgical History: appendectomy, pacemaker/AICD, other (LH. He had stents placed in June per patient. ) - Social History Smoking Status: Current every day smoker Smokeless Tobacco Status: No Alcohol use: none Drug use: none - Family History Mother Adopted: No Family Member Ethnicity: Non- Living Status: Hx Family Cancer: Yes (uncertain) Father Adopted: No Family Member Ethnicity: Non- Living Status: Hx Family Cardiac Disorders: Yes Hx Family Respiratory Disorders: Yes Hx Family Cancer: Yes (colon) Hx Family GI Disorders: No Hx Family Endocrine Disorder: Yes (diabetic type 2) Hx Family Neuromuscular Disorders: No Hx Family Neurologic Disorders: No Hx Family HEENT Disorders: No Hx Family Autoimmune Disorders: No Medications and Allergies Albuterol Sulfate [Albuterol Inhaler] 2 puff IH Q4HR PRN 01/04/15 [History] Aspirin Enteric Coated [Aspirin EC] 81 mg PO QAM 01/04/15 [History] Atorvastatin [Lipitor] 40 mg PO HS 01/04/15 [History] Loratadine [Claritin] 10 mg PO QAM 01/04/15 [History] Multivitamin [Multi-Day Vitamins] 1 tab PO QAM 01/04/15 [History] Om3-Dha/Epa/D3/Lutein/Zeazanth [Eye [place] Advantage Softgel] 1 cap PO BID [History] Omeprazole [PriLOSEC] 20 mg PO QAM 01/04/15 [History] Tiotropium [Spiriva] 2 puff IH DAILY 01/04/15 [History] Topiramate [Topamax] 100 mg PO BID 01/04/15 [History] Acetaminophen [Tylenol] 650 mg PO Q6HR PRN 06/21/15 [History] Carvedilol [Coreg] 3.125 - 6.25 mg PO BID 08/12/15 [History] Clopidogrel [Plavix] 75 mg PO QAM 08/12/15 [History] Isosorbide MONOnitrate (24 HR) [Imdur] 30 mg PO QAM 08/12/15 [History] Ropinirole [Requip] 0.25 mg PO HS 08/12/15 [History] Dimethyl Fumarate [Tecfidera] 240 mg PO BID 09/30/15 [History] Lactobacillus [Culturelle] 1 each PO DAILY 09/30/15 [History] Salsalate [Disalcid] 750 mg PO TID PRN 09/30/15 [History] Tamsulosin [Flomax] 0.4 mg PO DAILY 09/30/15 [History] Albuterol Neb [Proventil Neb] 2.5 mg IH Q4HR PRN 01/02/16 [History] Budesonide/Formoterol 160/4.5 [Symbicort 160/4.5] 2 puff IH BIDR 01/02/16 [ History] Capsaicin [Arthritis Pain Relief] 1 appl TP TID PRN 01/02/16 [History] Docusate [Colace] 100 mg PO BID 01/02/16 [History] Gabapentin [Neurontin] 300 mg PO TID 01/02/16 [History] Guaifenesin [Tab Tussin] 400 mg PO TID PRN 01/02/16 [History] Lactose-Reduced Food [Ensure Plus] 1 bottle PO TID 01/02/16 [History] Levothyroxine [Synthroid] 50 mcg PO QAM 01/02/16 [History] Nitroglycerin [Nitrostat] 0.4 mg SL AD PRN 01/02/16 [History] Ondansetron ODT [Zofran ODT] 4 mg SL Q6HR PRN #12 tab.rapdis 06/22/16 [Rx] Acetaminophen w/Cod 300-30 mg [Tylenol w/Codeine #3] 1 tab PO Q6HR PRN 06/30/16 [History] Lisinopril 2.5 mg PO AD PRN 06/30/16 [History] Cephalexin [Keflex] 500 mg PO QID #24 capsule 07/04/16 [Rx] Furosemide [Lasix] 20 mg PO DAILY #30 tablet 07/04/16 [Rx] Mupirocin [Bactroban Oint] 1 appl TP BID #1 tube 07/04/16 [Rx] PredniSONE 10 mg PO DAILY 20 Days 07/04/16 [Rx] Allergies Aluminum Allergy (Verified 01/01/16 16:35) Hives moxifloxacin Allergy (Verified 01/01/16 16:35) Swelling of Lip/Tongue/Throat Nickel Allergy (Verified 01/01/16 16:35) Rash [place] And Derivatives Adverse Reaction (Verified 01/01/16 16:35) See Comments MOUTH SORES magnesium Adverse Reaction (Verified 01/01/16 16:35) See Comments BURNING WITH URINATION metal Allergy (Uncoded 01/04/15 09:53) Rash All Systems Review: A 10-system review of systems was performed and is negative for pertinent findings except as documented above in the HPI. Exam General: Present: Conversant, Other (The patient is a elderly and thin white male who looks chronically ill and malnourished.) HEENT: Present: Trachea midline, Other (Muscle wasting of the face and neck.) Neck: Absent: JVD, Left Carotid bruit, Right Carotid bruit, Midline deformity, Tracheal deviation Cardiac: Present: Other (The patient is tachycardic.) Lungs: Present: Decreased breath sounds Neuro: Present: Alert and responsive, No focal deficits noted Abdomen: Present: Soft, Non-tender. Absent: Masses Vascular: Present: Pulse, absent (Patient does not have palpable right popliteal or right ankle pulses. There is no palpable left dorsalis pedis pulse. ), Pulse, normal (The patient has bilateral palpable femoral pulses. There is no femoral bruit present. There is a palpable popliteal pulse and a palpable posterior tibial pulse on the left.), Cyanosis (The patient has cyanotic changes to the left fifth toe. There is also an area on the medial aspect of the toe that appears to have some gangrenous but dry changes. There is no streaking or cellulitis or lymphangitis. The toe is tender to touch.). 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 Continue Keflex for 6 more days. Taper prednisone. May discontinue Plavix if there is any surgical intervention scheduled. Continue Bactroban, culture will be available within the next 2 days. Consider treating for UTI Enterococcus faecalis if he becomes symptomatic as it is sensitive to nitrofurantoin and ampicillin. Follow -up with podiatry and vascular surgery within the next week. [facility]errals[facility]Primary Care Provider[facility] - Prescriptions: Cephalexin [Keflex] 500 mg PO QID #24 capsule Furosemide [Lasix] 20 mg PO DAILY #30 tablet Mupirocin [Bactroban Oint] 1 appl TP BID #1 tube PredniSONE 10 mg PO DAILY 20 Days
[2016-07-06] MEDS: Ipratropium/Albuterol Neb 3 ML IH SCH ×2 (04:03→10:14)
[2016-07-06 05:13] LABS: Hematocrit 40.4 % (37.5-50.1); Hemoglobin 12.6 g/dL (12.9-16.9); Mean Corpuscular HGB Conc 31.2 g/dL (31.6-35.5); Mean Corpuscular Hemoglobin 30.6 pg (28.0-33.3); Mean Corpuscular Volume 98.1 fL (83.0-100.0); Mean Platelet Volume 10.2 fL (9.4-12.4); Platelet Count 198 K/mcL (140-400); Red Blood Count 4.12 M/mcL (4.19-5.50); Red Cell Distribution Width 13.4 % (11.5-14.5)
[2016-07-06 05:26] LABS: BUN/Creatinine Ratio 31 (6-26); Blood Urea Nitrogen 31 mg/dL (8-26); Carbon Dioxide 29 mEq/L (19-29); Chloride 101 mEq/L (98-109); Glucose 131 mg/dL (70-99); Osmolality,Calculated 296 (280-300); Sodium 139 mEq/L (136-145); eGFR For African Americans > 60 (> 60); eGFR For Non-African Americans > 60 (> 60)
[2016-07-06] MEDS: *HR* Heparin 5,000 UNIT/ML VIAL SQ SCH (06:23)
[2016-07-06] MEDS: ceFAZolin 1,000 MG in D5% in Water (Mini-Bag+) 100 ML IVPB SCH (06:23)
[2016-07-06 08:11] VITALS: BP 148/78
--- NOTE | 2016-07-06 08:42 | Internal Med Progress Note ---
Date of Encounter: 07/06/16 Time of Encounter: 08:40 - Assessment and plan (1) Acute and chronic respiratory failure Current Visit: Yes Status: Acute Assessment and plan: acute on chronic hypoxic and hypercapneic resp failure Due to COPD exacerbation 2ry to acute bronchitis viral vs bacterial COmpleted 4 days of azithromycin Continue Solu-Medrol BIPAP PRN Was intubated but is a DNR cc a DNI transferred from ICU on 07/02/16. The patient's respiratory status has not improved much, continues to require IV steroids using Solu-Medrol 40 mg every 8 hours. His left fifth toe has improved color with the use of Ancef, no growth on the ulcer culture. Vascular surgery was consulted and Dr. Ruelas recommended no intervention for now. As per Dr Ruelas "From a vascular standpoint there is no objection for the patient be transferred to the [facility]". The patient's (CATHY)ankle-brachial index was 0.65 on the right and 0.97 on the left. Of note the patient has no complaints in the right lower extremity or right foot. We will continue Plavix for now, might need to follow up with podiatry if his left toe does not improve. Discussed the case with Dr Magana who accepted the transfer to continue inpatient care at the [facility] due to persistent acute on chronic hypoxic and hypercapneic resp failure Due to COPD exacerbation 2ry to acute bronchitis Qualifiers: Respiratory failure complication: hypoxia and hypercapnia Qualified Code(s) : J96.21 - Acute and chronic respiratory failure with hypoxia; J96.22 - Acute and chronic respiratory failure with hypercapnia (2) COPD exacerbation Current Visit: Yes Status: Acute Assessment and plan: We will continue BiPAP supportive treatment. Continue steroids, and bronchodilator. (3) Respiratory acidosis Current Visit: Yes Status: Acute (4) Former tobacco use Current Visit: No Status: Acute (5) Hypercapnic respiratory failure Current Visit: No Status: Acute Qualifiers: Chronicity: acute on chronic Qualified Code(s): J96.22 - Acute and chronic respiratory failure with hypercapnia (6) Mobitz type 2 second degree AV block Current Visit: No Status: Acute Assessment and plan: s/p pacemaker (7) Artificial pacemaker Current Visit: No Status: Chronic (8) Systolic and diastolic CHF w/reduced LV function, NYHA class 4 Current Visit: No Status: Chronic Assessment and plan: EF 45 % start lasix 20 mg daily requests appointment with cardiology ( Dr Sin) (9) Cellulitis of toe of left foot Current Visit: Yes Status: Acute Assessment and plan: 5th left toe ulcer/acute cellulitis, improving Culture did not grow any pathogens Continue Ancef upon discharge, can use mupirocin x ray of left foot did not show any signs of osteomyelitis May follow with podiatry (10) Multiple sclerosis, secondary progressive Current Visit: No Status: Acute Assessment and plan: curently on Tecfidera - Subjective Interval history: The patient was not able to be discharged yesterday, ABG, the pH was 7.42 PCO2 55 and a PO2 of 109. Patient will be discharged later today feeling less SOB, bringing up whitish phlegm , denies CP , no fever, no abdominal pain , no dysuria at all. She complained of mild left fifth toe pain - Constitutional Vitals: Temp Pulse Resp BP Pulse Ox 97.9 F 96 16 148/78 99 07/06/16 08:08 07/06/16 08:08 07/06/16 08:08 07/06/16 08:08 07/06/16 08:08 General appearance: Present: mild distress, A&O X 3, answers questions appropriately Internal Medicine: Result - Labs CBC & Chem 7: 07/06/16 04:37 07/06/16 04:37 Labs: Short CBC 07/06/16 Range/Units 04:37 WBC 11.4 H (4.3-11.1) K/mcL Hgb 12.6 L (12.9-16.9) g/dL Hct 40.4 (37.5-50.1) % Plt Count 198 (140-400) K/mcL BMP 07/06/16 04:37 Sodium 139 Potassium 4.0 Chloride 101 Carbon Dioxide 29 BUN 31 H Creatinine 1.00 Glucose 131 H Calcium 9.0 - ABG Interpretation ABG results: ABG ABG pH 7.42 pH Units (7.32-7.45) 07/04/16 15:35 ABG pCO2 55 mmHg (35-45) H 07/04/16 15:35 ABG pO2 109 mmHg (85-104) H 07/04/16 15:35 ABG O2 Saturation 98 % (95-98) 03/15/17 15:35 Consult Discharge Plan - Plan Instructions: Myocardial Infarction (DC), Heart Failure (DC), Acute Respiratory Distress Syndrome (DC), Cellulitis (DC), Cellulitis (GEN), Hypothyroidism (DC), Chronic Obstructive Pulmonary Disease (DC), Chronic Hypertension (DC), Cigarette Smoking and Your Health, 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 Continue Keflex for 6 more days. Taper prednisone. May discontinue Plavix if there is any surgical intervention scheduled. Continue Bactroban, culture will be available within the next 2 days. Consider treating for UTI Enterococcus faecalis if he becomes symptomatic as it is sensitive to nitrofurantoin and ampicillin. Follow -up with podiatry and vascular surgery within the next week. [facility]errals: [facility] [Primary Care Provider[facility] - Prescriptions: Cephalexin [Keflex] 500 mg PO QID #24 capsule Furosemide [Lasix] 20 mg PO DAILY #30 tablet Mupirocin [Bactroban Oint] 1 appl TP BID #1 tube PredniSONE 10 mg PO DAILY 20 Days
[2016-07-06] MEDS: MethylPREDNISolone 40 MG/ML VIAL IVP SCH (09:13)
[2016-07-06] MEDS: Isosorbide MONOnitrate (24 HR) 30 MG TAB.ER.24H PO SCH (09:13)
[2016-07-06] MEDS: Aspirin 81 MG TAB.CHEW PO SCH (09:13)
[2016-07-06] MEDS: Topiramate 100 MG TABLET PO SCH (09:14)
[2016-07-06] MEDS: Furosemide 20 MG TABLET PO SCH (09:14)
[2016-07-06] MEDS: (Dimethyl Fumarate [Tecfidera] 240 MG) PO SCH (09:18)
[2016-07-06] MEDS: Budesonide/Formoterol 160/4.5 MDI IH SCH (10:14)
--- NOTE | 2016-07-06 12:37 | Arterial Study Report ---
LE Arterial Physiologic Study Patient Name:Keyshawn Grayson Order Number:[id number] Procedure Date:07/05/2016 Date:1945ge:71 yrs Gender:Male Lt BP:119 / mmHg Rt.BP:117 / mmHgHeart Rate: Location:[facility] Room #: 2NE23 Command And Control Specialist:Katya Chavez RDCS Referring MD:Abhishek Peace MD behavioral health professional:[facility] Yunior MD:Matteo Wyatt MD Primary Indications:PVD Risk Factors Yes/No Hypertension Yes Diabetes Yes Hypercholesterolemia Yes Smoker Previous Yes Hx of CAD/PTCA Yes Impressions: 1) Right lower extremity waveform demonstrates moderately diminished hemodynamics. 2) Right Ankle Brachial Index demonstrates moderately occlusive disease. 1) Left lower extremity waveform demonstrates normal hemodynamics. 2) Left Ankle Brachial Index is normal. Recommendations: Preliminary noted in pt EMR. Findings LE Arterial Physiologic Exam: PVR: Right: The PVR waveforms are mildly diminished in the right ankle. Left: The PVR waveforms are normal in the left ankle. Prior Study: No prior study available for comparison. Segmental Pressures Side Location Pressure Index Result Right Posterior Tibial 77 0.65 Moderately Diminished Right Dorsalis Pedis 69 0.58 Moderately Diminished Left Posterior Tibial 115 0.97 Normal Left Dorsalis Pedis 108 0.91 Normal Ankle Brachial Index Right Systolic Diastolic CATHY Brachial 117 0.65 Dorsalis Pedis 69 0.58 Posterior Tibial 77 0.65 Left Systolic Diastolic CAHTY Brachial 119 0.97 Dorsalis Pedis 108 0.91 Posterior Tibial 115 0.97 Updated by Matteo Wyatt MD on 07/06/2016 12:31:53 PM with Status of Final electronically signed on 07/06/2016 12:32:17 PM with status of Final
== END 2016-07-06 09:50 | DRG 208 ==
LOC: EMEROO 02:25 → ICNU 06:03 → SUATTDRO 06:03 → ICNU 07:02 → 2NENU 07-01 16:13
PROVIDERS: ADMIT Internal Medicine; ATTEND Internal Medicine